=== PATIENT | female | born 1980 | race Caucasian/White ===

== ENCOUNTER 2018-04-28 13:55 | Inpatient (IN) ==
[2018-04-28 14:43] LABS: Bilirubin,Urine Negative (Negative); Blood,Urine Negative (Negative); Color,Urine Yellow (Yellow); Glucose,Urine (UA) Normal (Normal); Ketones,Urine Negative (Negative); Leukocyte Esterase,Urine Small (Negative); Nitrite,Urine Negative (Negative); Protein,Urine 100 mg/dL (Neg-Trace); Specific Gravity,Urine 1.028 (1.010-1.025); Urobilinogen,Urine Normal (Normal)
[2018-04-28 14:52] LABS: Bacteria,Urine Moderate per hpf (None-Few); Hyaline Casts,Urine None Seen per lpf (None-Few); Squamous Epithelial Cell,Urine Many per lpf (None-Few); WBC,Urine 30-50 per hpf (0-3)
[2018-04-28 15:02] LABS: Clarity,Urine Slightly Hazy (Clear)
[2018-04-28] MEDS ORDERED: *HR* FentaNYL (PF) 100 MCG/2 ML VIAL IVP ONE (15:35)
[2018-04-28] MEDS ORDERED: cefTRIAXone 1,000 MG in Water for inj. (sterile) 20 ML 10 ML IVP ONE (15:35)
[2018-04-28] MEDS ORDERED: Ondansetron 4 MG/2 ML VIAL IVP ONE (15:35)
[2018-04-28] MEDS ORDERED: Ketorolac 15 MG/ML VIAL IVP ONE (15:36)
[2018-04-28 15:45] LABS: Basophils % 0.3 %; Hematocrit 37.1 % (35.3-44.9); Hemoglobin 12.5 g/dL (11.5-15.4); Immature Granulocytes % 0.8 % (0-4); Lymphocytes # 0.3 K/mcL (0.6-4.6); Lymphocytes % 5.1 %; Mean Corpuscular HGB Conc 33.7 g/dL (31.6-35.5); Mean Corpuscular Hemoglobin 29.9 pg (28.0-33.3); Mean Corpuscular Volume 88.8 fL (83.0-100.0); Mean Platelet Volume 10.2 fL (9.4-12.4); Monocytes # 0.6 K/mcL (0.0-1.3); Monocytes % 8.8 %; Neutrophils # 5.3 K/mcL (1.6-8.9); Platelet Count 148 K/mcL (140-400); Red Blood Count 4.18 M/mcL (3.82-4.97); Red Cell Distribution Width 13.2 % (11.5-14.5)
[2018-04-28 15:52] LABS: BUN/Creatinine Ratio 18 (6-26); Blood Urea Nitrogen 13 mg/dL (6-20); Carbon Dioxide 24 mEq/L (23-29); Chloride 103 mEq/L (98-107); Glucose 127 mg/dL (70-105); Osmolality,Calculated 284 (280-300); Potassium 4.2 mEq/L (3.5-5.1); Sodium 136 mEq/L (136-145); eGFR For Non-African Americans > 60 (> 60)
[2018-04-28] MEDS: 0.9 % Sodium Chloride 1,000 ML IVC SCH ×3 (15:55→22:34)
--- NOTE | 2018-04-28 15:57 | Emergency Department Note ---
Disposition Clinical Impression: Febrile illness, acute Urinary tract infection Qualifiers: Urinary tract infection type: acute cystitis Hematuria presence: without hematuria Qualified Code(s): N30.00 - Acute cystitis without hematuria Disposition: Still a Patient Referrals: Garcia Abbott DO [Primary Care Provider] - Forms: ED Satisfaction Letter Time of Disposition: 19:05 General Adult HPI - General Chief complaint: ED Urogenital-Female Stated complaint: Body aches,UTI Time Seen by Provider: 04/28/18 14:24 Source: patient Limitations: no limitations Nursing Notes Reviewed: Yes Vital Signs Reviewed: Yes - History of Present Illness HPI Narrative: Patient complaining of myalgias for the past week. Approximately 3 weeks ago she was diagnosed with pyelonephritis. States she took antibiotics and got better however she started having pain again she went back to urgent care and had a KUB which showed no signs of stones. She states she was having hematuria at that time. She then had a couple days where she felt better however over the past week she has gotten worse again. She reports burning on urination. Pain Scale: 10 - Related Data Home Medications Medication Instructions Recorded Confirmed Albuterol Sulfate [Ventolin Hfa] 2 puff IH Q6H PRN 04/28/18 04/28/18 Amitriptyline [Elavil] 25 mg PO HS 04/28/18 04/28/18 Budesonide/Formoterol 160/4.5 2 puff IH BIDR 04/28/18 04/28/18 [Symbicort 160/4.5] Cetirizine HCl [Zyrtec] 10 mg PO DAILY 04/28/18 04/28/18 Fluticasone/Vilanterol [Breo 1 puff IH DAILY 04/28/18 04/28/18 Ellipta 100-25 Mcg INH] Mometasone Furoate 2 spr NS DAILY 04/28/18 04/28/18 Montelukast [Singulair] 10 mg PO DAILY 04/28/18 04/28/18 SUMAtriptan Succinate [Imitrex] 100 mg PO BID PRN 04/28/18 04/28/18 Sertraline [Zoloft] 100 mg PO DAILY 04/28/18 04/28/18 Allergies Allergy/AdvReac Type Severity Reaction Status Date / Time ampicillin Allergy Rash Verified 06/12/15 10:49 All systems ED: reviewed and negative except as stated. Constitutional: Denies: fever, chills ENT ED: Denies: congestion Cardiovascular: Reports: chest pain (rib pain when she takes a deep breath). Denies: palpitations, syncope Respiratory: Denies: cough, dyspnea Gastrointestinal: Reports: abdominal pain (diffuse). Denies: nausea, vomiting, diarrhea, hematemesis, melena, hematochezia Genitourinary: Reports: urgency, dysuria, hematuria (one week ago). Denies: frequency Musculoskeletal: Reports: back pain (low back), myalgia. Denies: neck pain Integumentary: Denies: rash Past Medical History - Past Medical History Attestation: Yes The following information was validated with the patient. Source: patient Medical history: Reports: non-contributory, GERD - Social History Smoking Status: Never smoker Smokeless Tobacco Status: No Alcohol use: Reports: none Physical Exam - General Limitations: no limitations General appearance: alert, in no apparent distress - Head Head exam: atraumatic, normocephalic, normal inspection - Eye Eye exam: Present: normal appearance, PERRL, EOMI - ENT ENT exam: normal exam, normal oropharynx, mucous membranes moist - Neck Neck exam: Present: normal inspection, full ROM, trachea midline - Chest Chest inspection: Present: normal inspection, symmetric chest wall rise - Respiratory Respiratory exam: Present: normal lung sounds bilaterally. Absent: respiratory distress, accessory muscle use - Cardiovascular Cardiovascular exam: Present: regular rate, normal rhythm, normal heart sounds - Abdominal Exam Abdominal exam: Present: soft, tenderness (Pt reports pain all over however she does not grimace to palpation.), other (No rigidity. No swelling.). Absent: distention, guarding, rebound, rigidity, organomegaly, mass - Extremities Exam Extremities exam: Present: normal inspection, full ROM. Absent: tenderness, pedal edema - Back Exam Back exam: Present: normal inspection, full ROM, tenderness (To palpation of her lower back bilaterally.) - Neurological Exam Neurological exam: Present: alert, oriented X3 - Psychiatric Psychiatric exam: Present: normal affect, normal mood - Skin Skin exam: Present: warm, dry, intact, normal color. Absent: rash, cyanosis Course Course Narrative: Female patient presenting to emergency department complaining of not feeling well for the past week. She complains of myalgias. Dates that 3 weeks ago she was diagnosed with pyelonephritis. Was given antibiotics and finish them however she states she got better and then got worse again. She was seen at urgent care and diagnosed with possibly passing a kidney stone. She did have a KUB done that showed no stone however she was having blood in her urine. She states that she got better mildly and then got worse again. She says for the past week she has had pain in her back on the left side more than the right as well as some pain in her abdomen. She cannot state a specific area that his abdomen has been hurting however she reports the whole abdomen. She also reports some pain on deep inspiration. She describes it as a rib pain. She denies any fever however she is febrile and tachycardic here. We will provide patient with 2 L of fluid at this time. We will also get basic labs and a blood culture. We will provide her with Rocephin as she does have a urinary tract infection. We will also get a CT of patient's abdomen. Vital Signs Temperature 101.6 F H 04/28/18 13:57 Pulse Rate 108 04/28/18 13:57 Respiratory Rate 16 04/28/18 13:57 Blood Pressure 142/92 04/28/18 13:57 O2 Sat by Pulse Oximetry 98 04/28/18 13:57 Temperature 98.1 F 04/28/18 18:33 Pulse Rate 90 04/28/18 18:33 Respiratory Rate 18 04/28/18 18:33 Blood Pressure 102/65 04/28/18 18:33 O2 Sat by Pulse Oximetry 95 04/28/18 18:33 Oxygen Delivery Oxygen Delivery Room Air Medical Decision Making - Medical Records Medical records reviewed: Yes I reviewed the patient's medical records. - Lab Data Lab results reviewed: Yes I reviewed the patient's lab results. Result diagrams: 04/28/18 15:12 04/28/18 15:12 Lab Results 04/28/18 04/28/18 04/28/18 Range/Units 14:20 14:20 15:12 WBC 6.3 (4.3-11.1) K/mcL RBC 4.18 (3.82-4.97) M/mcL Hgb 12.5 (11.5-15.4) g/dL Hct 37.1 (35.3-44.9) % MCV 88.8 (83.0-100.0) fL MCH 29.9 (28.0-33.3) pg MCHC 33.7 (31.6-35.5) g/dL RDW 13.2 (11.5-14.5) % Plt Count 148 (140-400) K/mcL MPV 10.2 (9.4-12.4) fL Immature Gran % 0.8 (0-4) % Seg Neutrophils % 85.0 % Lymphocytes % 5.1 % Monocytes % 8.8 % Eosinophils % 0.0 % Basophils % 0.3 % Neutrophils # 5.3 (1.6-8.9) K/mcL Lymphocytes # 0.3 L (0.6-4.6) K/mcL Monocytes # 0.6 (0.0-1.3) K/mcL Eosinophils # 0.0 (0.0-0.6) K/mcL Basophils # 0.0 (0.0-0.2) K/mcL Sodium (136-145) mEq/L Potassium (3.5-5.1) mEq/L Chloride (98-107) mEq/L Carbon Dioxide (23-29) mEq/L BUN (6-20) mg/dL Creatinine (0.60-1.20) mg/dL Est GFR ( Amer) (> 60) Est GFR (Non-Af Amer) (> 60) BUN/Creatinine Ratio (6-26) Glucose (70-105) mg/dL Calculated Osmolality (280-300) Lactic Acid (0.5-2.2) mmol/L Calcium (8.6-10.3) mg/dL Phosphorus (2.7-4.5) mg/dL Magnesium (1.6-2.6) mg/dL Total Bilirubin (0.3-1.0) mg/dL Direct Bilirubin (0.0-0.2) mg/dL Indirect Bilirubin (0.0-1.2) mg/dL AST (13-39) Units/L ALT (7-52) Units/L Alkaline Phosphatase (34-104) Units/L Troponin I (< 0.04) ng/mL Serum Total Protein (6.4-8.9) g/dL Albumin (3.5-5.7) g/dL Globulin (2.4-3.5) g/dL Albumin/Globulin Ratio (1.1-2.2) Urine Color Yellow (Yellow) Urine Clarity Slightly Hazy (Clear) Urine pH 6.0 (5.0-8.0) pH Units Ur Specific [place] 1.028 H (1.010-1.025) Urine Protein 100 H (Neg-Trace) mg/dL Urine Glucose (UA) Normal (Normal) mg/dL Urine Ketones Negative (Negative) mg/dL Urine Blood Negative (Negative) Urine Nitrite Negative (Negative) Urine Bilirubin Negative (Negative) Urine Urobilinogen Normal (Normal) mg/dL Ur Leukocyte Esterase Small H (Negative) Urine Microscopic RBC 3-5 H (0-3) per hpf Urine Microscopic WBC 30-50 H (0-3) per hpf Ur Squamous Epith Cells Many H (None-Few) per lpf Urine Bacteria Moderate H (None-Few) per hpf Hyaline Casts None Seen (None-Few) per lpf Ur Culture Indicated? NO. A (NO) Urine Test Negative (Negative) 04/28/18 04/28/18 Range/Units 15:12 15:39 WBC (4.3-11.1) K/mcL RBC (3.82-4.97) M/mcL Hgb (11.5-15.4) g/dL Hct (35.3-44.9) % MCV (83.0-100.0) fL MCH (28.0-33.3) pg MCHC (31.6-35.5) g/dL RDW (11.5-14.5) % Plt Count (140-400) K/mcL MPV (9.4-12.4) fL Immature Gran % (0-4) % Seg Neutrophils % % Lymphocytes % % Monocytes % % Eosinophils % % Basophils % % Neutrophils # (1.6-8.9) K/mcL Lymphocytes # (0.6-4.6) K/mcL Monocytes # (0.0-1.3) K/mcL Eosinophils # (0.0-0.6) K/mcL Basophils # (0.0-0.2) K/mcL Sodium 136 (136-145) mEq/L Potassium 4.2 (3.5-5.1) mEq/L Chloride 103 (98-107) mEq/L Carbon Dioxide 24 (23-29) mEq/L BUN 13 (6-20) mg/dL Creatinine 0.74 (0.60-1.20) mg/dL Est GFR ( Amer) > 60 (> 60) Est GFR (Non-Af Amer) > 60 (> 60) BUN/Creatinine Ratio 18 (6-26) Glucose 127 H (70-105) mg/dL Calculated Osmolality 284 (280-300) Lactic Acid 1.2 (0.5-2.2) mmol/L Calcium 9.0 (8.6-10.3) mg/dL Phosphorus 2.0 L (2.7-4.5) mg/dL Magnesium 1.9 (1.6-2.6) mg/dL Total Bilirubin 0.4 (0.3-1.0) mg/dL Direct Bilirubin 0.1 (0.0-0.2) mg/dL Indirect Bilirubin 0.3 (0.0-1.2) mg/dL AST 31 (13-39) Units/L ALT 44 (7-52) Units/L Alkaline Phosphatase 63 (34-104) Units/L Troponin I < 0.03 (< 0.04) ng/mL Serum Total Protein 7.4 (6.4-8.9) g/dL Albumin 4.4 (3.5-5.7) g/dL Globulin 3.0 (2.4-3.5) g/dL Albumin/Globulin Ratio 1.5 (1.1-2.2) Urine Color (Yellow) Urine Clarity (Clear) Urine pH (5.0-8.0) pH Units Ur Specific [place] (1.010-1.025) Urine Protein (Neg-Trace) mg/dL Urine Glucose (UA) (Normal) mg/dL Urine Ketones (Negative) mg/dL Urine Blood (Negative) Urine Nitrite (Negative) Urine Bilirubin (Negative) Urine Urobilinogen (Normal) mg/dL Ur Leukocyte Esterase (Negative) Urine Microscopic RBC (0-3) per hpf Urine Microscopic WBC (0-3) per hpf Ur Squamous Epith Cells (None-Few) per lpf Urine Bacteria (None-Few) per hpf Hyaline Casts (None-Few) per lpf Ur Culture Indicated? (NO) Urine Test (Negative) - Radiology Data Radiology results reviewed: Yes I reviewed the patient's radiology results. Abdomen/Pelvis CT 04/28/18 14:39 IMPRESSION: No evidence for acute intra-abdominal or intrapelvic pathology. No bowel obstruction or inflammation. No evidence for nephrolithiasis or urinary obstruction. Normal appendix. 4.4 cm left adnexal cyst. Follow-up as described below. Managing Incidental Adnexal Cystic Mass by CT or MR Benign cyst: Premenopausal (< or equal to 50 years if LMP unknown) < or equal to 5 cm: no follow up >5 cm: US in 6-12 weeks > or equal to 10 cm: US promptly Early postmenopausal (0-5 years after LMP) < or equal to 3 cm: no follow up 3-5 cm: US in 6-12 weeks >5 cm: US promptly Late postmenopausal < or equal to 3 cm: no follow up >3 cm: US promptly Reference: Pearl et al. Managing Incidental Findings on Abdominal CT: White Paper of the ACR Incidental Findings Committee. J Am Elda Radiol 2010;7:[id number] D/ / Rolando Miranda MD / Rolando Miranda MD Interpreting Provider: Rolando Miranda MD Chest X-Ray 04/28/18 15:33 IMPRESSION: No acute process. D/ / Mary Martin MD / Mary Martin MD Interpreting Provider: Mary Martin MD
[2018-04-28 16:08] LABS: Alanine Aminotransferase 44 Units/L (7-52); Albumin 4.4 g/dL (3.5-5.7); Albumin/Globulin Ratio 1.5 (1.1-2.2); Alkaline Phosphatase 63 Units/L (34-104); Aspartate Amino Transferase 31 Units/L (13-39); Bilirubin,Direct 0.1 mg/dL (0.0-0.2); Bilirubin,Indirect 0.3 mg/dL (0.0-1.2); Bilirubin,Total 0.4 mg/dL (0.3-1.0); Magnesium 1.9 mg/dL (1.6-2.6); Total Protein 7.4 g/dL (6.4-8.9)
--- NOTE | 2018-04-28 16:09 | Emergency Department Note ---
Disposition Clinical Impression: Febrile illness, acute Urinary tract infection Qualifiers: Urinary tract infection type: acute cystitis Disposition: Still a Patient Referrals: Garcia Abbott DO [Primary Care Provider] - Forms: ED Satisfaction Letter General Adult HPI - General Chief complaint: ED Urogenital-Female Stated complaint: Body aches,UTI Time Seen by Provider: 04/28/18 14:24 Source: patient Limitations: no limitations - History of Present Illness Pain Scale: 10 - Related Data Home Medications Medication Instructions Recorded Confirmed Prilosec 06/12/15 06/12/15 Previous Rx's Medication Instructions Recorded Cefdinir [Omnicef] 300 mg PO BID #20 capsule 06/12/15 Fluticasone Propionate Nasal 2 spray NS DAILY PRN #1 bottle 06/12/15 [Flonase] GuaiFENesin ER [Mucinex] 600 - 1,200 mg PO BID PRN #40 tab 06/12/15 Ibuprofen [Motrin] 800 mg PO Q6-8H PRN #30 tablet 06/12/15 Ondansetron [Zofran] 8 mg PO Q8HR PRN #9 tablet 06/12/15 Promethazine/Dextromethorphan 5 ml PO Q4H PRN #120 ml 06/12/15 [Promethazine-Dm Syrup] Allergies Allergy/AdvReac Type Severity Reaction Status Date / Time ampicillin Allergy Rash Verified 06/12/15 10:49 Past Medical History - Past Medical History Medical history: Reports: non-contributory, GERD - Social History Smoking Status: Never smoker Smokeless Tobacco Status: No Alcohol use: Reports: none Physical Exam - General Limitations: no limitations General appearance: alert, in no apparent distress Course Vital Signs Temperature 101.6 F H 04/28/18 13:57 Pulse Rate 108 04/28/18 13:57 Respiratory Rate 16 04/28/18 13:57 Blood Pressure 142/92 04/28/18 13:57 O2 Sat by Pulse Oximetry 98 04/28/18 13:57 Temperature 101.2 F H 04/28/18 15:30 Pulse Rate 103 04/28/18 15:30 Respiratory Rate 14 04/28/18 15:30 Blood Pressure 137/82 04/28/18 15:30 O2 Sat by Pulse Oximetry 95 04/28/18 15:30 Oxygen Delivery Oxygen Delivery Room Air Medical Decision Making - Lab Data Result diagrams: 04/28/18 15:12 04/28/18 15:12 Lab Results 04/28/18 04/28/18 04/28/18 Range/Units 14:20 15:12 15:12 WBC 6.3 (4.3-11.1) K/mcL RBC 4.18 (3.82-4.97) M/mcL Hgb 12.5 (11.5-15.4) g/dL Hct 37.1 (35.3-44.9) % MCV 88.8 (83.0-100.0) fL MCH 29.9 (28.0-33.3) pg MCHC 33.7 (31.6-35.5) g/dL RDW 13.2 (11.5-14.5) % Plt Count 148 (140-400) K/mcL MPV 10.2 (9.4-12.4) fL Immature Gran % 0.8 (0-4) % Seg Neutrophils % 85.0 % Lymphocytes % 5.1 % Monocytes % 8.8 % Eosinophils % 0.0 % Basophils % 0.3 % Neutrophils # 5.3 (1.6-8.9) K/mcL Lymphocytes # 0.3 L (0.6-4.6) K/mcL Monocytes # 0.6 (0.0-1.3) K/mcL Eosinophils # 0.0 (0.0-0.6) K/mcL Basophils # 0.0 (0.0-0.2) K/mcL Sodium 136 (136-145) mEq/L Potassium 4.2 (3.5-5.1) mEq/L Chloride 103 (98-107) mEq/L Carbon Dioxide 24 (23-29) mEq/L BUN 13 (6-20) mg/dL Creatinine 0.74 (0.60-1.20) mg/dL Est GFR ( Amer) > 60 (> 60) Est GFR (Non-Af Amer) > 60 (> 60) BUN/Creatinine Ratio 18 (6-26) Glucose 127 H (70-105) mg/dL Calculated Osmolality 284 (280-300) Lactic Acid (0.5-2.2) mmol/L Calcium 9.0 (8.6-10.3) mg/dL Urine Color Yellow (Yellow) Urine Clarity Slightly Hazy (Clear) Urine pH 6.0 (5.0-8.0) pH Units Ur Specific [place] 1.028 H (1.010-1.025) Urine Protein 100 H (Neg-Trace) mg/dL Urine Glucose (UA) Normal (Normal) mg/dL Urine Ketones Negative (Negative) mg/dL Urine Blood Negative (Negative) Urine Nitrite Negative (Negative) Urine Bilirubin Negative (Negative) Urine Urobilinogen Normal (Normal) mg/dL Ur Leukocyte Esterase Small H (Negative) Urine Microscopic RBC 3-5 H (0-3) per hpf Urine Microscopic WBC 30-50 H (0-3) per hpf Ur Squamous Epith Cells Many H (None-Few) per lpf Urine Bacteria Moderate H (None-Few) per hpf Hyaline Casts None Seen (None-Few) per lpf Ur Culture Indicated? NO. A (NO) 04/28/18 Range/Units 15:39 WBC (4.3-11.1) K/mcL RBC (3.82-4.97) M/mcL Hgb (11.5-15.4) g/dL Hct (35.3-44.9) % MCV (83.0-100.0) fL MCH (28.0-33.3) pg MCHC (31.6-35.5) g/dL RDW (11.5-14.5) % Plt Count (140-400) K/mcL MPV (9.4-12.4) fL Immature Gran % (0-4) % Seg Neutrophils % % Lymphocytes % % Monocytes % % Eosinophils % % Basophils % % Neutrophils # (1.6-8.9) K/mcL Lymphocytes # (0.6-4.6) K/mcL Monocytes # (0.0-1.3) K/mcL Eosinophils # (0.0-0.6) K/mcL Basophils # (0.0-0.2) K/mcL Sodium (136-145) mEq/L Potassium (3.5-5.1) mEq/L Chloride (98-107) mEq/L Carbon Dioxide (23-29) mEq/L BUN (6-20) mg/dL Creatinine (0.60-1.20) mg/dL Est GFR ( Amer) (> 60) Est GFR (Non-Af Amer) (> 60) BUN/Creatinine Ratio (6-26) Glucose (70-105) mg/dL Calculated Osmolality (280-300) Lactic Acid 1.2 (0.5-2.2) mmol/L Calcium (8.6-10.3) mg/dL Urine Color (Yellow) Urine Clarity (Clear) Urine pH (5.0-8.0) pH Units Ur Specific [place] (1.010-1.025) Urine Protein (Neg-Trace) mg/dL Urine Glucose (UA) (Normal) mg/dL Urine Ketones (Negative) mg/dL Urine Blood (Negative) Urine Nitrite (Negative) Urine Bilirubin (Negative) Urine Urobilinogen (Normal) mg/dL Ur Leukocyte Esterase (Negative) Urine Microscopic RBC (0-3) per hpf Urine Microscopic WBC (0-3) per hpf Ur Squamous Epith Cells (None-Few) per lpf Urine Bacteria (None-Few) per hpf Hyaline Casts (None-Few) per lpf Ur Culture Indicated? (NO) Critical Care Time Critical Care Time: Yes Total Critical Care Time: 35 Attestation: CC time spent in med management of possible urosepsis, febrile illness. Attestation Statement - Attestation Attestation: I examined this patient and my medical decision-making was reviewed with the Resident Physician. I agree with the documented findings, disposition and treatment plan as described except to the extent set forth below. 37 showed female presents emergency room for generalized body aches, fever, urinary complaints. She was recently diagnosed with a UTI a few weeks ago. She states she took antibiotics and has been off them for the past couple weeks. She has noted increasing urinary frequency and dysuria now associated with generalized malaise, fevers, myalgias. Concerns for possible urosepsis. She does have a fever and she is tachycardic. Blood pressure is normal. He has no white count. Lactate is negative. We have ordered IV fluids, pain medications and I ordered a CT scan of her abdomen and pelvis to rule out any infected stone. Anticipate the patient will likely be admitted based on her vitals and fever. Heart rate can be explained from her fever. Disposition is pending at this time based on lab work as well as a pending CT scan. We have ordered IV Rocephin as well as blood cultures and a urine culture. Critical care time of 35 minutes spent in medical management of potential sepsis.
[2018-04-28 16:10] LABS: Troponin I < 0.03 ng/mL (< 0.04)
[2018-04-28] MEDS ORDERED: *HR* Nalbuphine 10 MG/ML AMPUL IV ONE (17:20)
[2018-04-28] MEDS ORDERED: 0.9 % Sodium Chloride 1,000 ML IVC ONE (17:51)
--- NOTE | 2018-04-28 19:48 | Internal Med History&Physical ---
Date of Encounter: 04/28/18 Time of Encounter: 19:46 Internal Medicine - H&P: HPI Chief complaint: pain while urinating Admitted From: Home Plans for Post Hospital Care: Home History of present illness: Ms. Del Castillo is a 37 year old obese female with history of asthma and depression presented to the ED with complaint of dysuria. As per patient has had symptoms on and off for the past 3 weeks and has visited urgent care multiple times and was prescribed antibiotics which she cannot recall the name of without improvement in her symptoms. She cannot recall how many days she took antibiotics for but does report that she completed the antibiotics. She reports burning pain while urinating in addition to having blood in her urine. She denies any sexually transmitted diseases, she has had no history of kidney stones but she does report on-and-off fever and chills for the past 3 weeks. Today she again felt feverish and had dysuria so she decided to come to the ED. While in the ED UA was found to be positive so she was started on antibiotics. CT abdomen and pelvis did not show any hydronephrosis or evidence of pyelonephritis. She cannot recall any aggravating or alleviating factors. She denies . currently she denies fever, hadache, vision changes, chills, N/v/D, cp, SOB, heat or cold intolerance. Past Med Surg Social Fam HX - Past Medical History Medical history: non-contributory, GERD - Social History Smoking Status: Never smoker Smokeless Tobacco Status: No Alcohol use: none Internal Medicine - H&P: Meds Albuterol Sulfate [Ventolin Hfa] 2 puff IH Q6H PRN 04/28/18 [History] Amitriptyline [Elavil] 25 mg PO HS 04/28/18 [History] Budesonide/Formoterol 160/4.5 [Symbicort 160/4.5] 2 puff IH BIDR 04/28/18 [ History] Cetirizine HCl [Zyrtec] 10 mg PO DAILY 04/28/18 [History] Fluticasone/Vilanterol [Breo Ellipta 100-25 Mcg INH] 1 puff IH DAILY 04/28/18 [ History] Montelukast [Singulair] 10 mg PO DAILY 04/28/18 [History] RX: Mometasone Furoate 2 spr NS DAILY 04/28/18 [History] SUMAtriptan Succinate [Imitrex] 100 mg PO BID PRN 04/28/18 [History] Sertraline [Zoloft] 100 mg PO DAILY 04/28/18 [History] 3 Allergy/AdvReac Type Severity Reaction Status Date / Time ampicillin Allergy Rash Verified 06/12/15 10:49 All Systems PM: A 10-system review of systems was performed and is negative for pertinent findings except as documented above in the HPI. - Constitutional Vitals: Temp Pulse Resp BP Pulse Ox 98.1 F 90 18 102/65 95 04/28/18 18:33 04/28/18 18:33 04/28/18 18:33 04/28/18 18:33 04/28/18 18:33 - Other Additional findings: General: Patient is alert, oriented, no acute distress, morbidly obese Head: atraumatic, normocephalic, Eye: normal appearance, PERRL, no scleral icterus, no conjunctival injection ENT: mucous membranes moist, normal external ear exam Neck: normal inspection, trachea midline, full ROM, no carotid bruits Chest: normal inspection, symmetric chest rise Respiratory: Good respiratory effort. Bilateral breath sounds are clear without wheezing, crackles, or rhonchi. Cardiovascular: Regular rate and rhythm. No clicks, rubs, gallops, or murmors. Normal heart sounds. Abdomen: Bowel sounds present normoactive x-4 quadrants. Abdomen is soft, nondistended. Epigastric tenderness. No guarding or rebound. No organomegaly noted, obese, no CVA tenderness Musculoskeletal: Spontaneously moving all extremities Skin: warm, dry, intact. Neuro: Alert and oriented x4. Sensation light touch intact. Cranial nerves II- 12 is intact. Not aphasic, gait is steady, rapid hand movements intact, finger- to-nose intact, Psych: Patient's affect is normal Internal Med - H&P Results - Labs CBC & Chem 7: 04/28/18 15:12 04/28/18 15:12 - Assessment and plan (1) Complicated UTI (urinary tract infection) Current Visit: Yes Status: Acute Assessment and plan: UA positive has had out patient treatment ( does not know name of ABx) follow urine cx and blood cx will continue ceftriaxone IVPB - already received in the ED- no allergic rxn noted will send chlamydia/gonorrhea/HIV CT A/P was negative for pyelonephritis tylenol for pain and fever Q6H PRN will start her on IVF at 125 cc per hour watch for over load (2) Morbidly obese Current Visit: Yes Status: Acute Assessment and plan: was counseled on diet nutrition consult in the AM (3) Asthma Current Visit: Yes Status: Acute Assessment and plan: continue symbicort, montelukast and Albuterol PRN Qualifiers: Asthma severity: moderate Asthma persistence: persistent Asthma complication type: uncomplicated Qualified Code(s): J45.40 - Moderate persistent asthma, uncomplicated (4) Depression Current Visit: Yes Status: Acute Assessment and plan: continue home mediations once confirmed Qualifiers: Depression Type: unspecified Qualified Code(s): F32.9 - Major depressive disorder, single episode, unspecified (5) DVT prophylaxis Current Visit: Yes Status: Acute Assessment and plan: heparin 5000 units SC Q8H - Time Spent With Patient Total time spent is greater than 50% in coordination of care (as documented) at patient's floor/unit and/or counseling patient:
[2018-04-28] MEDS ORDERED: Acetaminophen 325 MG TABLET PO PRN (20:04)
[2018-04-28] MEDS: Budesonide/Formoterol 160/4.5 MDI IH SCH (20:41)
[2018-04-28] MEDS: cefTRIAXone 2,000 MG in Water for inj. (sterile) 20 ML 20 ML IVP SCH (21:30)
[2018-04-28] MEDS: *HR* Heparin 5,000 UNIT/ML VIAL SQ SCH (21:30)
[2018-04-28] MEDS ORDERED: Acetaminophen 325 MG TABLET PO ONE (23:57)
[2018-04-28] MEDS ORDERED: Ringers Solution, Lactated 500 ML IVC ONE (23:57)
[2018-04-29 01:46] LABS: Chlamydia Trachomatis DNA Ur NOT DETECTED (Not Detect)
[2018-04-29 05:07] LABS: Basophils % 0.4 %; Immature Granulocytes % 0.7 % (0-4); Lymphocytes # 0.4 K/mcL (0.6-4.6); Lymphocytes % 9.3 %; Mean Corpuscular HGB Conc 32.8 g/dL (31.6-35.5); Mean Corpuscular Hemoglobin 29.4 pg (28.0-33.3); Mean Corpuscular Volume 89.6 fL (83.0-100.0); Mean Platelet Volume 10.6 fL (9.4-12.4); Monocytes # 0.2 K/mcL (0.0-1.3); Monocytes % 4.7 %; Neutrophils # 3.8 K/mcL (1.6-8.9); Platelet Count 114 K/mcL (140-400); Red Blood Count 3.57 M/mcL (3.82-4.97); Red Cell Distribution Width 13.2 % (11.5-14.5); Segmented Neutrophils % 84.9 %
[2018-04-29 05:08] LABS: Hemoglobin 10.5 g/dL (11.5-15.4)
[2018-04-29 05:21] LABS: BUN/Creatinine Ratio 16 (6-26); Blood Urea Nitrogen 11 mg/dL (6-20); Carbon Dioxide 21 mEq/L (23-29); Chloride 110 mEq/L (98-107); Glucose 110 mg/dL (70-105); Osmolality,Calculated 286 (280-300); Potassium 3.9 mEq/L (3.5-5.1); Sodium 138 mEq/L (136-145); eGFR For Non-African Americans > 60 (> 60)
[2018-04-29] MEDS: *HR* Heparin 5,000 UNIT/ML VIAL SQ SCH ×3 (05:21→21:11)
[2018-04-29] MEDS: 0.9 % Sodium Chloride 1,000 ML IVC SCH ×2 (07:43→17:20)
[2018-04-29] MEDS: Budesonide/Formoterol 160/4.5 MDI IH SCH ×2 (08:01→20:16)
[2018-04-29] MEDS: Acetaminophen 325 MG TABLET PO PRN ×2 (08:14→17:20)
--- NOTE | 2018-04-29 08:24 | Internal Med Progress Note ---
Date of Encounter: 04/29/18 Time of Encounter: 08:20 - Assessment and plan (1) Complicated UTI (urinary tract infection) Current Visit: Yes Status: Acute Assessment and plan: UA positive has had out patient treatment ( does not know name of ABx) follow urine cx and blood cx will continue ceftriaxone IVPB - already received in the ED- no allergic rxn noted will send chlamydia/gonorrhea/HIV CT A/P was negative for pyelonephritis tylenol for pain and fever Q6H PRN will start her on IVF at 125 cc per hour watch for over load 04/29- continues to have weakness, fatigue and dysuria. Complicated UTI with outpatient treatment failure. Continue Rocephin at this time broadening coverage with vancomycin and pharmacy dosing as the patient is also septic. urine cultures received but pending-adjust antibiotics based on culture results. Blood cultures pending. Patient was febrile overnight with a TMAX of 102.7. Afebrile this morning. Continue IV fluid. Chlamydia/gonorrhea/HIV nonreactive. (2) Sepsis Current Visit: Yes Status: Acute Assessment and plan: Sepsis 2/2 urinary tract infection. Blood pressure borderline low, tachycardic and fevered. Source: UTI organism unknown at this time, follow cultures. See assessment and planning above Qualifiers: Sepsis type: sepsis due to unspecified organism Qualified Code(s): A41.9 - Sepsis, unspecified organism (3) Morbidly obese Current Visit: Yes Status: Acute Assessment and plan: Patient is morbidly obese, discussed lifestyle modification and counseled on diet. Continue nutrition consult (4) Asthma Current Visit: Yes Status: Acute Assessment and plan: not in acute exacerbation. continue symbicort, montelukast and Albuterol PRN Qualifiers: Asthma severity: moderate Asthma persistence: persistent Asthma complication type: uncomplicated Qualified Code(s): J45.40 - Moderate persistent asthma, uncomplicated (5) Depression Current Visit: Yes Status: Acute Assessment and plan: History of depression, continue antidepressants Qualifiers: Depression Type: unspecified Qualified Code(s): F32.9 - Major depressive disorder, single episode, unspecified (6) DVT prophylaxis Current Visit: Yes Status: Acute Assessment and plan: Continue subcutaneous heparin 3 times a day - Time Spent With Patient Total time spent is greater than 50% in coordination of care (as documented) at patient's floor/unit and/or counseling patient: 25 - 35 minutes - Subjective Interval history: The patient was seen and examined at bedside today. Continued to have fevers overnight. Also, continued to report dysuria, weakness, fatigue, malaise, rigors - Constitutional Vitals: Temp Pulse Resp BP Pulse Ox 98.6 F 90 16 94/61 96 04/29/18 07:56 04/29/18 07:56 04/29/18 08:02 04/29/18 07:56 04/29/18 08:02 General appearance: Present: mild distress, A&O X 3, morbidly obese - Head Head exam: Present: atraumatic, normocephalic - Eye Eye exam: Present: EOMI, PERRL, conjuntiva pink, sclera anicteric Pupils: Present: PERRL - Neck Neck exam general surgery: Present: supple, trachea midline. Absent: lymphadenopathy - Respiratory Respiratory exam: Present: CTAB. Absent: accessory muscle use, rales, rhonchi, wheezes - Cardiovascular Cardiovascular exam: Present: RRR, +S1, +S2. Absent: diastolic murmur, gallop, rubs, systolic murmur - GI/Abdominal GI/Abdominal exam: Present: normal bowel sounds, soft, no peritoneal signs. Absent: distended, tenderness - Extremities Exam Extremities exam: Present: warm, radial pulses palpable and symmetrical. Absent : calf tenderness, cyanotic, pedal edema - Back Exam Back exam: Absent: CVA tenderness (L), CVA tenderness (R), tenderness - Neurological Exam Neurological exam: Present: CN II-XII intact, oriented X3, no focal deficits. Absent: pronater drift, facial droop, speech deficit - Skin Skin exam: Present: dry, intact Internal Medicine: Result - Labs CBC & Chem 7: 04/29/18 03:46 04/29/18 03:46 Labs: Short CBC 04/29/18 Range/Units 03:46 WBC 4.5 (4.3-11.1) K/mcL Hgb 10.5 L D (11.5-15.4) g/dL Hct 32.0 L (35.3-44.9) % Plt Count 114 L (140-400) K/mcL Neutrophils # 3.8 (1.6-8.9) K/mcL BMP 07/26/18 03:46 Sodium 138 Potassium 3.9 Chloride 110 H Carbon Dioxide 21 L BUN 11 Creatinine 0.67 Glucose 110 H Calcium 8.0 L Consult Discharge Plan - Plan Referrals: Garcia Abbott DO [Primary Care Provider] -
[2018-04-29] MEDS ORDERED: Naloxone 0.4 MG/ML INJ IVP PRN (08:42)
[2018-04-29] MEDS ORDERED: 0.9 % Sodium Chloride 500 ML IVC ONE ×2 (11:39→18:11)
[2018-04-29] MEDS ORDERED: Ketorolac 30 MG/ML VIAL IVP ONE (13:19)
[2018-04-29] MEDS: Ondansetron 4 MG/2 ML VIAL IVP PRN (13:55)
--- NOTE | 2018-04-29 17:09 | Electrocardiograph Report ---
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
[2018-04-29] MEDS: cefTRIAXone 2,000 MG in Water for inj. (sterile) 20 ML 20 ML IVP SCH (21:13)
[2018-04-30] MEDS: 0.9 % Sodium Chloride 1,000 ML IVC SCH ×3 (02:50→20:05)
[2018-04-30] MEDS: Acetaminophen 325 MG TABLET PO PRN ×2 (04:11→13:20)
[2018-04-30 05:17] LABS: Basophils % 0.6 %; Eosinophils % 0.6 %; Hematocrit 32.8 % (35.3-44.9); Hemoglobin 10.8 g/dL (11.5-15.4); Immature Granulocytes % 0.3 % (0-4); Lymphocytes # 0.7 K/mcL (0.6-4.6); Lymphocytes % 18.5 %; Mean Corpuscular HGB Conc 32.9 g/dL (31.6-35.5); Mean Corpuscular Hemoglobin 30.3 pg (28.0-33.3); Mean Corpuscular Volume 91.9 fL (83.0-100.0); Mean Platelet Volume 10.8 fL (9.4-12.4); Monocytes # 0.4 K/mcL (0.0-1.3); Neutrophils # 2.5 K/mcL (1.6-8.9); Platelet Count 112 K/mcL (140-400); Red Blood Count 3.57 M/mcL (3.82-4.97); Red Cell Distribution Width 13.2 % (11.5-14.5)
[2018-04-30 05:37] LABS: BUN/Creatinine Ratio 11 (6-26); Blood Urea Nitrogen 7 mg/dL (6-20); Calcium 8.6 mg/dL (8.6-10.3); Carbon Dioxide 24 mEq/L (23-29); Chloride 109 mEq/L (98-107); Glucose 129 mg/dL (70-105); Osmolality,Calculated 288 (280-300); Potassium 4.1 mEq/L (3.5-5.1); Sodium 139 mEq/L (136-145); eGFR For Non-African Americans > 60 (> 60)
[2018-04-30 05:42] LABS: Platelet Estimate Decreased (Normal)
[2018-04-30] MEDS: *HR* Heparin 5,000 UNIT/ML VIAL SQ SCH ×2 (05:55→13:20)
[2018-04-30] MEDS: Budesonide/Formoterol 160/4.5 MDI IH SCH ×2 (07:17→22:18)
[2018-04-30] MEDS: Ondansetron 4 MG/2 ML VIAL IVP PRN (13:23)
[2018-04-30] MEDS ORDERED: Aminoglycoside Consult 1 EACH MC ONE (16:06)
--- NOTE | 2018-04-30 16:55 | Internal Med Progress Note ---
Date of Encounter: 04/30/18 Time of Encounter: 16:52 - Assessment and plan (1) Complicated UTI (urinary tract infection) Current Visit: Yes Status: Acute Assessment and plan: UA positive has had out patient treatment ( does not know name of ABx) follow urine cx and blood cx will continue ceftriaxone IVPB - already received in the ED- no allergic rxn noted will send chlamydia/gonorrhea/HIV CT A/P was negative for pyelonephritis tylenol for pain and fever Q6H PRN will start her on IVF at 125 cc per hour watch for over load 04/29- continues to have weakness, fatigue and dysuria. Complicated UTI with outpatient treatment failure. Continue Rocephin at this time broadening coverage with vancomycin and pharmacy dosing as the patient is also septic. urine cultures received but pending-adjust antibiotics based on culture results. Blood cultures pending. Patient was febrile overnight with a TMAX of 102.7. Afebrile this morning. Continue IV fluid. Chlamydia/gonorrhea/HIV nonreactive. 04/30- urine cultures preliminary-no growth. blood cultures no growth to date. d/c vancomycin. Continue ceftriaxone. Daily labs. Discontinue IV fluid. (2) Sepsis Current Visit: Yes Status: Acute Assessment and plan: Sepsis 2/2 urinary tract infection. Blood pressure borderline low, tachycardic and fevered. Source: UTI organism unknown at this time, follow cultures. See assessment and planning above 04/30- sepsis resolved. afebrile x24 hours, no longer tachycardic. No obvious source for infection, urine microbiology no growth to date, however, given UA and the fact that urine cultures were collected after receiving multiple doses of ABX still consider urine as cause of infection; no obvious wounds. CT abdomen and pelvis negative for acute process. Patient does have pancytopenia today, etiology unclear. Send peripheral blood smear, B12, folate, retic count and follow. Continue daily labs. Qualifiers: Sepsis type: sepsis due to unspecified organism Qualified Code(s): A41.9 - Sepsis, unspecified organism (3) Morbidly obese Current Visit: Yes Status: Acute Assessment and plan: Patient is morbidly obese, discussed lifestyle modification and counseled on diet. Continue nutrition consult (4) Asthma Current Visit: Yes Status: Acute Assessment and plan: not in acute exacerbation. continue symbicort, montelukast and Albuterol PRN Qualifiers: Asthma severity: moderate Asthma persistence: persistent Asthma complication type: uncomplicated Qualified Code(s): J45.40 - Moderate persistent asthma, uncomplicated (5) Depression Current Visit: Yes Status: Acute Assessment and plan: History of depression, continue antidepressants Qualifiers: Depression Type: unspecified Qualified Code(s): F32.9 - Major depressive disorder, single episode, unspecified (6) Pancytopenia Current Visit: Yes Status: Acute Assessment and plan: mild pancytopenia, etiology unclear. Send peripheral blood smear, B12, folate , retic count and follow (7) DVT prophylaxis Current Visit: Yes Status: Acute Assessment and plan: SCD's - Time Spent With Patient Total time spent is greater than 50% in coordination of care (as documented) at patient's floor/unit and/or counseling patient: 25 - 35 minutes - Subjective Interval history: The patient was seen and examined at bedside today. Reporting that she is feeling much better today. Denies any fevers, chills, weakness or fatigue. Denying any urinary symptoms - Constitutional Vitals: Temp Pulse Resp BP Pulse Ox 98.0 F 79 16 115/69 95 04/30/18 15:07 04/30/18 15:07 04/30/18 15:07 04/30/18 15:07 04/30/18 15:07 General appearance: Present: mild distress, A&O X 3, morbidly obese - Head Head exam: Present: atraumatic, normocephalic - Eye Eye exam: Present: PERRL, conjuntiva pink, sclera anicteric Pupils: Present: PERRL - Neck Neck exam general surgery: Present: supple, trachea midline. Absent: lymphadenopathy - Respiratory Respiratory exam: Present: CTAB. Absent: accessory muscle use, rales, rhonchi, wheezes - Cardiovascular Cardiovascular exam: Present: RRR, +S1, +S2. Absent: diastolic murmur, gallop, rubs, systolic murmur - GI/Abdominal GI/Abdominal exam: Present: normal bowel sounds, soft, no peritoneal signs. Absent: distended, tenderness - Extremities Exam Extremities exam: Present: warm, radial pulses palpable and symmetrical. Absent : calf tenderness, cyanotic, pedal edema - Neurological Exam Neurological exam: Present: CN II-XII intact, oriented X3, no focal deficits. Absent: pronater drift, facial droop, speech deficit - Skin Skin exam: Present: dry, intact Internal Medicine: Result - Labs CBC & Chem 7: 04/30/18 04:05 04/30/18 04:05 Labs: Short CBC 04/30/18 Range/Units 04:05 WBC 3.6 L (4.3-11.1) K/mcL Hgb 10.8 L (11.5-15.4) g/dL Hct 32.8 L (35.3-44.9) % Plt Count 112 L (140-400) K/mcL Neutrophils # 2.5 (1.6-8.9) K/mcL BMP 04/30/18 04:05 Sodium 139 Potassium 4.1 Chloride 109 H Carbon Dioxide 24 BUN 7 Creatinine 0.63 Glucose 129 H Calcium 8.6 Consult Discharge Plan - Plan Referrals: Garcia Abbott DO [Primary Care Provider] - (Our offices will call you with an appointment time and date)
[2018-04-30 17:36] LABS: Immature Reticulocyte % 15.7 % (11.0-38.0); Retculocyte # 0.05 M/mcL (0.05-0.10); Reticulocyte % 1.4 % (1.6-2.8)
[2018-04-30 17:48] LABS: INR 1.2; Prothrombin Time 13.2 Seconds (9.4-12.1)
[2018-04-30 18:18] LABS: Folate 17.3 ng/mL (3.0-16.0)
[2018-05-01 04:42] LABS: Basophils % 0.6 %; Eosinophils # 0.1 K/mcL (0.0-0.6); Eosinophils % 1.5 %; Hematocrit 31.6 % (35.3-44.9); Hemoglobin 10.3 g/dL (11.5-15.4); Immature Granulocytes % 0.3 % (0-4); Lymphocytes # 1.1 K/mcL (0.6-4.6); Lymphocytes % 32.2 %; Mean Corpuscular HGB Conc 32.6 g/dL (31.6-35.5); Mean Corpuscular Hemoglobin 29.4 pg (28.0-33.3); Mean Corpuscular Volume 90.3 fL (83.0-100.0); Mean Platelet Volume 11.2 fL (9.4-12.4); Monocytes # 0.5 K/mcL (0.0-1.3); Monocytes % 14.3 %; Neutrophils # 1.7 K/mcL (1.6-8.9); Platelet Count 131 K/mcL (140-400); Red Cell Distribution Width 13.2 % (11.5-14.5); Segmented Neutrophils % 51.1 %
[2018-05-01 04:45] LABS: BUN/Creatinine Ratio 11 (6-26); Blood Urea Nitrogen 7 mg/dL (6-20); Carbon Dioxide 28 mEq/L (23-29); Chloride 104 mEq/L (98-107); Glucose 178 mg/dL (70-105); Osmolality,Calculated 292 (280-300); Potassium 3.7 mEq/L (3.5-5.1); Sodium 140 mEq/L (136-145); eGFR For Non-African Americans > 60 (> 60)
[2018-05-01] MEDS: Acetaminophen 325 MG TABLET PO PRN (06:01)
[2018-05-01] MEDS ORDERED: Acetaminophen 325 MG TABLET PO PRN (06:08)
[2018-05-01] MEDS: Budesonide/Formoterol 160/4.5 MDI IH SCH (07:55)
[2018-05-01] MEDS ORDERED: cefTRIAXone 1,000 MG in Water for inj. (sterile) 20 ML 10 ML IVP SCH (09:00)
[2018-05-01 11:23] VITALS: BP 128/85
--- NOTE | 2018-05-01 14:59 | Discharge Summary ---
- NOTES TO OUTPATIENT PROVIDER Notes to Outpatient Provider: No pending labs or diagnostic studies Orders not resulted at time of discharge: Pending orders 05/02/18 04:00 Basic Metabolic Panel AM 0400 Complete Blood Count [HEME] AM 0400 05/03/18 04:00 Basic Metabolic Panel AM 0400 Complete Blood Count [HEME] AM 0400 05/04/18 04:00 Basic Metabolic Panel AM 0400 Complete Blood Count [HEME] AM 0400 Date of Encounter: 05/01/18 Time of Encounter: 14:53 - Discharge Diagnosis (1) Complicated UTI (urinary tract infection) Priority: Primary Status: Acute Assessment and Plan: UA positive has had out patient treatment ( does not know name of ABx) follow urine cx and blood cx will continue ceftriaxone IVPB - already received in the ED- no allergic rxn noted will send chlamydia/gonorrhea/HIV CT A/P was negative for pyelonephritis tylenol for pain and fever Q6H PRN will start her on IVF at 125 cc per hour watch for over load 04/29- continues to have weakness, fatigue and dysuria. Complicated UTI with outpatient treatment failure. Continue Rocephin at this time broadening coverage with vancomycin and pharmacy dosing as the patient is also septic. urine cultures received but pending-adjust antibiotics based on culture results. Blood cultures pending. Patient was febrile overnight with a TMAX of 102.7. Afebrile this morning. Continue IV fluid. Chlamydia/gonorrhea/HIV nonreactive. 04/30- urine cultures preliminary-no growth. blood cultures no growth to date. d/c vancomycin. Continue ceftriaxone. Daily labs. Discontinue IV fluid. (2) Sepsis Priority: Secondary Status: Resolved Qualifiers: Sepsis type: sepsis due to unspecified organism Qualified Code(s): A41.9 - Sepsis, unspecified organism (3) Morbidly obese Priority: Secondary Status: Acute (4) Asthma Priority: Secondary Status: Acute Qualifiers: Asthma severity: moderate Asthma persistence: persistent Asthma complication type: uncomplicated Qualified Code(s): J45.40 - Moderate persistent asthma, uncomplicated (5) Depression Priority: Secondary Status: Acute Qualifiers: Depression Type: unspecified Qualified Code(s): F32.9 - Major depressive disorder, single episode, unspecified (6) Pancytopenia Priority: Secondary Status: Acute (7) DVT prophylaxis Priority: Secondary Status: Acute Hospital course: Ms. Del Castillo is a 37 year old female who presented to the ED with complaints of dysuria. She was found to have sepsis secondary to urinary tract infection. On presentation, the patient was tachycardic and febrile with temperature of 102.7. Blood culture preliminary no growth to date. Urine culture finals no growth to date. Throughout the hospital course she was treated with IV ceftriaxone. Sepsis resolved, and has continued to improve clinically throughout stay. However, she was noted to have a mild pancytopenia with WBC of 3.4, H&H of 10.3-31.6, platelets of 131. I believe this is caused by her sepsis with urinary tract infection. Overall she has had an Uneventful hospital course. Patient returned to baseline on day of discharge. No longer reporting any dysuria, denies any flank pain, has been afebrile for the last 48 hours and remained hemodynamically stable. With improvement in clinical picture the patient is ready for discharge. She will be discharged home on Bactrim DS twice a day 5 days. She has been instructed to finish her complete antibiotic course and follow-up with her PCP within one week for further evaluation. Additionally, she has been instructed to return to the ED should she develop fevers, chills, rigors, dysuria, or flank pain. Discharge discussed with: patient, nurse - Time Spent with Patient Total time spent providing and/or coordinating discharge services: Less than 30 minutes - Discharge Medications Prescriptions: Sulfamethoxazole/Trimeth DS [Bactrim DS] 1 each PO BID 5 Days #10 tablet Home Medications: Albuterol Sulfate [Ventolin Hfa] 2 puff IH Q6H PRN 04/28/18 [History] Amitriptyline [Elavil] 25 mg PO HS 04/28/18 [History] Budesonide/Formoterol 160/4.5 [Symbicort 160/4.5] 2 puff IH BIDR 04/28/18 [ History] Cetirizine HCl [Zyrtec] 10 mg PO DAILY 04/28/18 [History] Fluticasone/Vilanterol [Breo Ellipta 100-25 Mcg INH] 1 puff IH DAILY 04/28/18 [ History] Mometasone Furoate 2 spr NS DAILY 04/28/18 [History] Montelukast [Singulair] 10 mg PO DAILY 04/28/18 [History] SUMAtriptan Succinate [Imitrex] 100 mg PO BID PRN 04/28/18 [History] Sertraline [Zoloft] 100 mg PO DAILY 04/28/18 [History] Sulfamethoxazole/Trimeth DS [Bactrim DS] 1 each PO BID 5 Days #10 tablet [Rx] Allergies/Adverse Reactions: 3 Allergy/AdvReac Type Severity Reaction Status Date / Time ampicillin Allergy Rash Verified 06/12/15 10:49 Date of admission: 04/29/18 08:42 Primary care physician: Rayray Abbott DO Discharging clinician: [facility] See Anticipated date of discharge: 05/01/18 - Constitutional Vitals: Temp Pulse Resp BP Pulse Ox 97.9 F 74 20 128/85 94 05/01/18 11:22 05/01/18 11:22 05/01/18 11:22 05/01/18 11:22 05/01/18 11:22 General appearance: Present: mild distress, A&O X 3, morbidly obese - Head Head exam: Present: atraumatic, normocephalic - Eye Eye exam: Present: PERRL, conjuntiva pink, sclera anicteric Pupils: Present: PERRL - Neck Neck exam general surgery: Present: supple, trachea midline. Absent: lymphadenopathy - Respiratory Respiratory exam: Present: CTAB. Absent: accessory muscle use, rales, rhonchi, wheezes - Cardiovascular Cardiovascular exam: Present: RRR, +S1, +S2. Absent: diastolic murmur, gallop, rubs, systolic murmur - GI/Abdominal GI/Abdominal exam: Present: normal bowel sounds, soft, no peritoneal signs. Absent: distended, tenderness - Extremities Exam Extremities exam: Present: warm, radial pulses palpable and symmetrical. Absent : calf tenderness, cyanotic, pedal edema - Neurological Exam Neurological exam: Present: CN II-XII intact, oriented X3, no focal deficits. Absent: pronater drift, facial droop, speech deficit - Skin Skin exam: Present: dry, intact - Patient Status Disposition: Home, Self-Care Condition: Good Functional capacity at discharge: independent ambulation Overall status at discharge: patient is progressing back to baseline - Discharge Instructions Instructions: Urinary Tract Infection in Women (DC) Follow Up With: Garcia Abbott DO [Primary Care Provider] - (Our offices will call you with an appointment time and date)
== END 2018-05-01 16:07 | disposition home or self-care (01) | DRG 720 ==
LOC: 3BNU 13:55 → EMEROO 13:55 → 3BNU 20:22
PROVIDERS: ADMIT Internal Medicine; ATTEND Internal Medicine

== ENCOUNTER 2020-02-10 08:55 | Inpatient (IN) ==
[2020-02-10 09:07] LABS: ABG PCO2 < 13 mmHg (35-45); ABG PH 6.94 pH Units (7.32-7.45); ABG PO2 220 mmHg (85-104)
[2020-02-10] MEDS ORDERED: 0.9 % Sodium Chloride 1,000 ML IVC ONE ×2 (09:10)
[2020-02-10] MEDS ORDERED: 0.9 % Sodium Chloride 2,000 ML ONE (09:10)
[2020-02-10] MEDS ORDERED: Sodium Bicarbonate 50 MEQ/50 ML VIAL IVP ONE (09:11)
[2020-02-10] MEDS ORDERED: Insulin Human Regular 100 UNIT in 0.9 % Sodium Chloride 100 ML IVC SCH (09:15)
[2020-02-10 09:54] LABS: Bilirubin,Urine Small (Negative); Blood,Urine Large (Negative); Color,Urine Yellow (Yellow); Glucose,Urine (UA) >=1000 mg/dL (Normal); Ketones,Urine 80 mg/dL (Negative); Leukocyte Esterase,Urine Negative (Negative); Nitrite,Urine Negative (Negative); PH,Urine 5.5 pH Units (5.0-8.0); Protein,Urine >=300 mg/dL (Neg-Trace); Specific Gravity,Urine 1.027 (1.010-1.025); Urobilinogen,Urine Normal (Normal)
[2020-02-10 09:57] LABS: Bacteria,Urine None Seen per hpf (None-Few); Hyaline Casts,Urine None Seen per lpf (None-Few); Squamous Epithelial Cell,Urine Many per lpf (None-Few)
[2020-02-10 09:58] LABS: Clarity,Urine Clear (Clear)
[2020-02-10 10:04] LABS: Amphetamine Screen,Urine Negative ng/mL (Cutoff=1000); Barbiturate Screen,Urine Negative ng/mL (Cutoff=200); Benzodiazepines Screen,Urine Negative ng/mL (Cutoff=200); Cannabinoid Screen,Urine Negative ng/mL (Cutoff = 50); Cocaine Screen,Urine Negative ng/mL (Cutoff= 300); Opiate Screen,Urine Negative ng/mL (Cutoff=300); Phencyclidine Screen,Urine Negative ng/mL (Cutoff=25)
[2020-02-10 10:10] LABS: Mean Platelet Volume 11.2 fL (9.4-12.4); Nucleated Red Blood Cells 0.2 /100 WBC (0)
[2020-02-10 10:11] LABS: Basophils # 0.4 K/mcL (0.0-0.2); Basophils % 1.1 %; Hemoglobin 14.3 g/dL (11.5-15.4); Immature Granulocytes % 4.7 % (0-4); Lymphocytes # 3.2 K/mcL (0.6-4.6); Lymphocytes % 10.1 %; Mean Corpuscular HGB Conc 31.8 g/dL (31.6-35.5); Mean Corpuscular Hemoglobin 29.7 pg (28.0-33.3); Mean Corpuscular Volume 93.4 fL (83.0-100.0); Monocytes # 3.4 K/mcL (0.0-1.3); Monocytes % 10.6 %; Neutrophils # 23.3 K/mcL (1.6-8.9); Platelet Count 373 K/mcL (140-400); Red Blood Count 4.82 M/mcL (3.82-4.97); Red Cell Distribution Width 14.9 % (11.5-14.5); Segmented Neutrophils % 73.5 %
[2020-02-10 10:18] LABS: White Blood Count 31.7 K/mcL (4.3-11.1)
[2020-02-10 10:19] LABS: Platelet Estimate Normal (Normal)
[2020-02-10 10:27] LABS: Acetaminophen < 10 mcg/mL (10-20); Ethanol < 10 mg/dL (Less than 10); Salicylate < 2.5 mg/dL (15.0-30.0)
[2020-02-10 10:41] LABS: Alanine Aminotransferase 35 Units/L (7-52); Alkaline Phosphatase 126 Units/L (34-104); Aspartate Amino Transferase 31 Units/L (13-39); BUN/Creatinine Ratio 17 (6-26); Bilirubin,Total 0.4 mg/dL (0.3-1.0); Blood Urea Nitrogen 19 mg/dL (6-20); Calcium 8.7 mg/dL (8.6-10.3); Carbon Dioxide < 4 mEq/L (23-29); Chloride 106 mEq/L (98-107); Creatine Kinase 31 Units/L (30-223); Globulin 3.9 g/dL (2.4-3.5); Glucose 523 mg/dL (70-105); Lipase 793 Units/L (11-82); Magnesium 2.8 mg/dL (1.6-2.6); Osmolality,Calculated 304 (280-300); Potassium 3.5 mEq/L (3.5-5.1); Sodium 134 mEq/L (136-145); Total Protein 7.9 g/dL (6.4-8.9); Troponin I < 0.03 ng/mL (< 0.04); eGFR For African Americans > 60 (> 60); eGFR For Non-African Americans 54 (> 60)
[2020-02-10] MEDS ORDERED: cefTRIAXone 2,000 MG in Water for inj. (sterile) 20 ML IVP STA (11:21)
[2020-02-10] MEDS ORDERED: Vancomycin 1,750 MG/517.5 ML IV.SOLN IVPB SCH (12:00)
[2020-02-10] MEDS ORDERED: Vancomycin 1,750 MG in 0.9 % Sodium Chloride 250 ML IVPB SCH (12:00)
[2020-02-10] MEDS: Insulin Human Regular 100 UNIT in 0.9 % Sodium Chloride 100 ML IVC SCH ×4 (12:15→23:12)
[2020-02-10] MEDS ORDERED: Insulin Regular, Human 100 UNIT/ML IV PRN ×2 (12:16→12:24)
[2020-02-10] MEDS ORDERED: Naloxone 0.4 MG/ML INJ IVP PRN (12:24)
[2020-02-10] MEDS ORDERED: *HR* Dextrose 50 % in Water (Syg) 50 ML SYRINGE IVP PRN (12:24)
[2020-02-10] MEDS ORDERED: Isovue-370 500 ML BOTTLE IVP ONE (12:24)
[2020-02-10] MEDS ORDERED: 0.9 % Sodium Chloride w KCl 20 MEQ/1,000 ML MLS IVC SCH (12:30)
[2020-02-10 12:37] LABS: ABG Base Excess -29 mEq/L (-2 to 3); ABG HCO3 4 mEq/L (21-27); ABG Oxygen Saturation 98 % (95-98); ABG PCO2 20 mmHg (35-45); ABG PH 6.88 pH Units (7.32-7.45); ABG PO2 186 mmHg (85-104); ABG TCO2 < 5 mEq/L (20-26)
[2020-02-10] MEDS ORDERED: Ipratropium/Albuterol Neb 3 ML IH PRN (12:37)
[2020-02-10] MEDS: 0.9 % Sodium Chloride w KCl 20 MEQ/1,000 ML MLS IVC SCH ×6 (13:02→23:07)
[2020-02-10 14:12] LABS: Alanine Aminotransferase 33 Units/L (7-52); Albumin 3.7 g/dL (3.5-5.7); Alkaline Phosphatase 116 Units/L (34-104); Aspartate Amino Transferase 32 Units/L (13-39); BUN/Creatinine Ratio 18 (6-26); Bilirubin,Total 0.3 mg/dL (0.3-1.0); Blood Urea Nitrogen 18 mg/dL (6-20); Calcium 8.1 mg/dL (8.6-10.3); Carbon Dioxide < 4 mEq/L (23-29); Chloride 114 mEq/L (98-107); Creatine Kinase 35 Units/L (30-223); Globulin 3.7 g/dL (2.4-3.5); Glucose 406 mg/dL (70-105); Magnesium 2.6 mg/dL (1.6-2.6); Osmolality,Calculated 307 (280-300); Phosphorous 1.9 mg/dL (2.7-4.5); Potassium 3.4 mEq/L (3.5-5.1); Sodium 139 mEq/L (136-145); Total Protein 7.4 g/dL (6.4-8.9); eGFR For African Americans > 60 (> 60); eGFR For Non-African Americans > 60 (> 60)
[2020-02-10 14:28] LABS: Troponin I < 0.03 ng/mL (< 0.04)
[2020-02-10] MEDS ORDERED: Calcium Gluconate 1gm/50mL 1 GM/50 ML BAG IVPB PRN (14:29)
[2020-02-10] MEDS ORDERED: Potassium Phosphate 44 MEQ in 0.9 % Sodium Chloride 250 ML IVPB ONE ×2 (14:29→21:19)
[2020-02-10] MEDS ORDERED: *HR* Enoxaparin 120 MG/0.8 ML SYRINGE SQ SCH (15:00)
[2020-02-10 15:08] LABS: VBG HCO3 4 mEq/L (21-27); VBG PCO2 24 mmHg (41-51); VBG PH 6.81 pH Units (7.32-7.42); VBG PO2 180 mmHg (25-50)
[2020-02-10 15:27] LABS: ABG Base Excess -24 mEq/L (-2 to 3); ABG HCO3 6 mEq/L (21-27); ABG Oxygen Saturation 99 % (95-98); ABG PCO2 22 mmHg (35-45); ABG PH 7.01 pH Units (7.32-7.45); ABG PO2 182 mmHg (85-104); ABG TCO2 6 mEq/L (20-26)
[2020-02-10] MEDS ORDERED: *HR* Heparin 5,000 UNIT/ML VIAL SQ SCH ×2 (16:00→22:00)
[2020-02-10 16:15] LABS: BUN/Creatinine Ratio 18 (6-26); Blood Urea Nitrogen 17 mg/dL (6-20); Calcium 7.7 mg/dL (8.6-10.3); Carbon Dioxide < 4 mEq/L (23-29); Chloride 122 mEq/L (98-107); Glucose 252 mg/dL (70-105); Magnesium 2.4 mg/dL (1.6-2.6); Osmolality,Calculated 304 (280-300); Phosphorous < 1.0 mg/dL (2.7-4.5); Potassium 3.1 mEq/L (3.5-5.1); Sodium 142 mEq/L (136-145); eGFR For African Americans > 60 (> 60); eGFR For Non-African Americans > 60 (> 60)
[2020-02-10 16:49] LABS: Thyroid Stimulating Hormone 0.313 mcIU/mL (0.340-5.600); Triiodothyronine (T3) Free 2.42 pg/mL (2.50-3.90)
[2020-02-10] MEDS: D5% in 0.45% NACL w KCl 20 MEQ/1,000 ML MLS IVC PRN ×2 (17:09→21:14)
[2020-02-10 20:39] LABS: Basophils # 0.2 K/mcL (0.0-0.2); Basophils % 0.8 %; Hematocrit 38.8 % (35.3-44.9); Hemoglobin 12.9 g/dL (11.5-15.4); Immature Granulocytes % 3.8 % (0-4); Lymphocytes # 1.3 K/mcL (0.6-4.6); Lymphocytes % 6.2 %; Mean Corpuscular HGB Conc 33.2 g/dL (31.6-35.5); Mean Corpuscular Hemoglobin 30.4 pg (28.0-33.3); Mean Corpuscular Volume 91.5 fL (83.0-100.0); Mean Platelet Volume 10.7 fL (9.4-12.4); Monocytes # 1.8 K/mcL (0.0-1.3); Monocytes % 8.5 %; Neutrophils # 17.2 K/mcL (1.6-8.9); Nucleated Red Blood Cells 0.1 /100 WBC (0); Platelet Count 149 K/mcL (140-400); Red Blood Count 4.24 M/mcL (3.82-4.97); Red Cell Distribution Width 14.9 % (11.5-14.5); Segmented Neutrophils % 80.7 %; White Blood Count 21.3 K/mcL (4.3-11.1)
[2020-02-10 20:47] LABS: VBG HCO3 6 mEq/L (21-27); VBG Ionized Calcium 1.33 mmol/L (1.15-1.35); VBG PCO2 24 mmHg (41-51); VBG PH 7.02 pH Units (7.32-7.42); VBG PO2 129 mmHg (25-50)
[2020-02-10 21:05] LABS: BUN/Creatinine Ratio 14 (6-26); Blood Urea Nitrogen 15 mg/dL (6-20); Carbon Dioxide 4 mEq/L (23-29); Chloride 124 mEq/L (98-107); Glucose 252 mg/dL (70-105); Magnesium 2.1 mg/dL (1.6-2.6); Osmolality,Calculated 307 (280-300); Phosphorous < 1.0 mg/dL (2.7-4.5); Potassium 2.9 mEq/L (3.5-5.1); Sodium 144 mEq/L (136-145); eGFR For African Americans > 60 (> 60); eGFR For Non-African Americans 59 (> 60)
[2020-02-10] MEDS: Potassium Chloride 40 MEQ/200 ML BAG IVPB PRN (23:28)
[2020-02-11 00:49] LABS: VBG HCO3 7 mEq/L (21-27); VBG Ionized Calcium 1.39 mmol/L (1.15-1.35); VBG PCO2 27 mmHg (41-51); VBG PH 7.05 pH Units (7.32-7.42); VBG PO2 98 mmHg (25-50)
[2020-02-11] MEDS: 0.9 % Sodium Chloride w KCl 20 MEQ/1,000 ML MLS IVC SCH ×4 (01:01→06:59)
[2020-02-11 01:07] LABS: BUN/Creatinine Ratio 13 (6-26); Blood Urea Nitrogen 14 mg/dL (6-20); Carbon Dioxide 7 mEq/L (23-29); Chloride 127 mEq/L (98-107); Glucose 181 mg/dL (70-105); Magnesium 1.9 mg/dL (1.6-2.6); Osmolality,Calculated 305 (280-300); Phosphorous < 1.0 mg/dL (2.7-4.5); Potassium 2.7 mEq/L (3.5-5.1); Sodium 145 mEq/L (136-145); eGFR For African Americans > 60 (> 60); eGFR For Non-African Americans 56 (> 60)
[2020-02-11] MEDS: Potassium Chloride 40 MEQ/200 ML BAG IVPB PRN ×5 (01:32→15:22)
[2020-02-11] MEDS: Insulin Human Regular 100 UNIT in 0.9 % Sodium Chloride 100 ML IVC SCH ×7 (01:33→23:59)
[2020-02-11] MEDS ORDERED: Ondansetron 4 MG/2 ML VIAL IVP PRN (02:22)
[2020-02-11] MEDS: D5% in 0.45% NACL w KCl 20 MEQ/1,000 ML MLS IVC PRN ×2 (03:08→07:02)
[2020-02-11 04:53] LABS: Basophils # 0.1 K/mcL (0.0-0.2); Basophils % 0.4 %; Hematocrit 36.6 % (35.3-44.9); Hemoglobin 12.3 g/dL (11.5-15.4); Immature Granulocytes % 1.6 % (0-4); Lymphocytes # 0.6 K/mcL (0.6-4.6); Lymphocytes % 3.3 %; Mean Corpuscular HGB Conc 33.6 g/dL (31.6-35.5); Mean Corpuscular Hemoglobin 29.8 pg (28.0-33.3); Mean Corpuscular Volume 88.6 fL (83.0-100.0); Mean Platelet Volume 10.4 fL (9.4-12.4); Monocytes # 2.2 K/mcL (0.0-1.3); Monocytes % 11.5 %; Neutrophils # 16.1 K/mcL (1.6-8.9); Platelet Count 145 K/mcL (140-400); Red Blood Count 4.13 M/mcL (3.82-4.97); Red Cell Distribution Width 14.8 % (11.5-14.5); Segmented Neutrophils % 83.2 %; White Blood Count 19.3 K/mcL (4.3-11.1)
[2020-02-11 04:59] LABS: VBG HCO3 10 mEq/L (21-27); VBG Ionized Calcium 1.39 mmol/L (1.15-1.35); VBG PCO2 31 mmHg (41-51); VBG PO2 106 mmHg (25-50)
[2020-02-11 05:17] LABS: Alanine Aminotransferase 25 Units/L (7-52); Albumin 3.3 g/dL (3.5-5.7); Albumin/Globulin Ratio 1.1 (1.1-2.2); Alkaline Phosphatase 89 Units/L (34-104); Aspartate Amino Transferase 21 Units/L (13-39); BUN/Creatinine Ratio 13 (6-26); Bilirubin,Direct 0.1 mg/dL (0.0-0.2); Bilirubin,Indirect 0.2 mg/dL (0.0-1.0); Bilirubin,Total 0.3 mg/dL (0.3-1.0); Blood Urea Nitrogen 13 mg/dL (6-20); Calcium 8.3 mg/dL (8.6-10.3); Carbon Dioxide 9 mEq/L (23-29); Chloride 130 mEq/L (98-107); Glucose 154 mg/dL (70-105); Osmolality,Calculated 307 (280-300); Phosphorous < 1.0 mg/dL (2.7-4.5); Potassium 2.5 mEq/L (3.5-5.1); Sodium 147 mEq/L (136-145); Total Protein 6.3 g/dL (6.4-8.9); eGFR For African Americans > 60 (> 60); eGFR For Non-African Americans > 60 (> 60)
[2020-02-11] MEDS: *HR* Heparin 5,000 UNIT/ML VIAL SQ SCH ×3 (05:23→20:41)
[2020-02-11] MEDS: Potassium Phosphate 44 MEQ in 0.9 % Sodium Chloride 250 ML IVPB PRN ×2 (05:51→18:54)
[2020-02-11] MEDS ORDERED: Potassium Chloride 40 MEQ in D5% in Lactated Ringers 1,000 ML IVC SCH (07:45)
[2020-02-11] MEDS: Potassium Chloride 40 MEQ in D5% in Lactated Ringers 1,000 ML IVC SCH ×2 (08:30→22:26)
[2020-02-11] MEDS: Nystatin POWDER 30 GM BOTTLE TP SCH ×3 (09:00→20:41)
[2020-02-11 09:12] LABS: Estimated Average Glucose 335 mg/dl
[2020-02-11] MEDS ORDERED: D5% in Water 1,000 ML IVC ONE (09:28)
[2020-02-11] MEDS ORDERED: D5% in Water 1,000 ML IVC SCH ×2 (09:30→11:15)
[2020-02-11 10:06] LABS: VBG HCO3 11 mEq/L (21-27); VBG PCO2 31 mmHg (41-51); VBG PH 7.14 pH Units (7.32-7.42); VBG PO2 111 mmHg (25-50)
[2020-02-11] MEDS: *HR* Dextrose 50 % in Water (Syg) 50 ML SYRINGE IVP PRN (10:15)
[2020-02-11 10:26] LABS: BUN/Creatinine Ratio 12 (6-26); Blood Urea Nitrogen 12 mg/dL (6-20); Calcium 8.7 mg/dL (8.6-10.3); Carbon Dioxide 10 mEq/L (23-29); Chloride 130 mEq/L (98-107); Glucose 92 mg/dL (70-105); Magnesium 2.2 mg/dL (1.6-2.6); Osmolality,Calculated 307 (280-300); Phosphorous < 1.0 mg/dL (2.7-4.5); Potassium 2.9 mEq/L (3.5-5.1); Sodium 149 mEq/L (136-145); eGFR For African Americans > 60 (> 60); eGFR For Non-African Americans 59 (> 60)
[2020-02-11] MEDS ORDERED: Potassium Phosphate 44 MEQ in 0.9 % Sodium Chloride 250 ML IVPB ONE (10:27)
[2020-02-11] MEDS: *HR* Metoprolol 5 MG/5 ML VIAL IVP SCH ×3 (10:45→23:39)
[2020-02-11] MEDS: D10% in Water 500 ML IVC SCH ×2 (14:00→19:24)
[2020-02-11] MEDS ORDERED: D10% in Water 1,000 ML ONE (14:00)
[2020-02-11 14:12] LABS: VBG HCO3 12 mEq/L (21-27); VBG PCO2 26 mmHg (41-51); VBG PH 7.28 pH Units (7.32-7.42); VBG PO2 120 mmHg (25-50)
[2020-02-11 14:29] LABS: BUN/Creatinine Ratio 10 (6-26); Blood Urea Nitrogen 10 mg/dL (6-20); Calcium 8.5 mg/dL (8.6-10.3); Carbon Dioxide 10 mEq/L (23-29); Chloride 131 mEq/L (98-107); Glucose 113 mg/dL (70-105); Magnesium 2.4 mg/dL (1.6-2.6); Osmolality,Calculated 308 (280-300); Phosphorous < 1.0 mg/dL (2.7-4.5); Potassium 3.3 mEq/L (3.5-5.1); Sodium 149 mEq/L (136-145); eGFR For African Americans > 60 (> 60); eGFR For Non-African Americans > 60 (> 60)
[2020-02-11 17:55] LABS: VBG HCO3 13 mEq/L (21-27); VBG PCO2 29 mmHg (41-51); VBG PH 7.26 pH Units (7.32-7.42); VBG PO2 109 mmHg (25-50)
[2020-02-11 18:13] LABS: BUN/Creatinine Ratio 9 (6-26); Blood Urea Nitrogen 9 mg/dL (6-20); Calcium 8.6 mg/dL (8.6-10.3); Carbon Dioxide 11 mEq/L (23-29); Chloride 130 mEq/L (98-107); Glucose 280 mg/dL (70-105); Osmolality,Calculated 317 (280-300); Potassium 3.8 mEq/L (3.5-5.1); Sodium 149 mEq/L (136-145); eGFR For African Americans > 60 (> 60); eGFR For Non-African Americans 59 (> 60)
[2020-02-11 18:16] LABS: Magnesium 2.3 mg/dL (1.6-2.6); Phosphorous < 1.0 mg/dL (2.7-4.5)
[2020-02-11 23:50] LABS: Alanine Aminotransferase 23 Units/L (7-52); Alkaline Phosphatase 90 Units/L (34-104); Aspartate Amino Transferase 24 Units/L (13-39); BUN/Creatinine Ratio 8 (6-26); Bilirubin,Total 0.6 mg/dL (0.3-1.0); Blood Urea Nitrogen 8 mg/dL (6-20); Calcium 8.5 mg/dL (8.6-10.3); Carbon Dioxide 11 mEq/L (23-29); Chloride 132 mEq/L (98-107); Glucose 130 mg/dL (70-105); Magnesium 2.2 mg/dL (1.6-2.6); Osmolality,Calculated 316 (280-300); Phosphorous < 1.0 mg/dL (2.7-4.5); Potassium 3.1 mEq/L (3.5-5.1); Sodium 153 mEq/L (136-145); eGFR For African Americans > 60 (> 60); eGFR For Non-African Americans 60 (> 60)
[2020-02-12] MEDS: D10% in Water 500 ML IVC SCH ×5 (00:18→19:00)
[2020-02-12] MEDS: *HR* Dextrose 50 % in Water (Syg) 50 ML SYRINGE IVP PRN (01:07)
[2020-02-12] MEDS: Potassium Chloride 40 MEQ in D5% in 0.45% NACL 1,000 ML IVC SCH ×4 (01:08→23:00)
[2020-02-12] MEDS ORDERED: Acetaminophen IV 1,000 MG/100 ML INFUS..BTL IVPB ONE (01:52)
[2020-02-12] MEDS ORDERED: Vancomycin 1,750 MG in 0.9 % Sodium Chloride 250 ML IVPB SCH (02:00)
[2020-02-12] MEDS: Potassium Phosphate 44 MEQ in 0.9 % Sodium Chloride 250 ML IVPB PRN ×2 (02:14→11:32)
[2020-02-12] MEDS ORDERED: Vancomycin 2,000 MG/520 ML IV.SOLN IVPB ONE (02:23)
[2020-02-12 03:15] LABS: Basophils % 0.3 %; Hematocrit 30.7 % (35.3-44.9); Immature Granulocytes % 1.5 % (0-4); Lymphocytes # 0.8 K/mcL (0.6-4.6); Lymphocytes % 5.5 %; Mean Corpuscular HGB Conc 34.9 g/dL (31.6-35.5); Mean Corpuscular Hemoglobin 30.4 pg (28.0-33.3); Mean Corpuscular Volume 87.2 fL (83.0-100.0); Mean Platelet Volume 10.2 fL (9.4-12.4); Monocytes # 1.5 K/mcL (0.0-1.3); Monocytes % 10.8 %; Neutrophils # 11.7 K/mcL (1.6-8.9); Nucleated Red Blood Cells 0.3 /100 WBC (0); Platelet Count 130 K/mcL (140-400); Red Blood Count 3.52 M/mcL (3.82-4.97); Segmented Neutrophils % 81.9 %; White Blood Count 14.3 K/mcL (4.3-11.1)
[2020-02-12 03:16] LABS: Hemoglobin 10.7 g/dL (11.5-15.4)
[2020-02-12 03:19] LABS: VBG Ionized Calcium 1.35 mmol/L (1.15-1.35)
[2020-02-12] MEDS ORDERED: *HR* LORazepam 2 MG/ML VIAL IVP ONE ×2 (03:29→04:35)
[2020-02-12 03:33] LABS: Alanine Aminotransferase 23 Units/L (7-52); Albumin/Globulin Ratio 1.1 (1.1-2.2); Alkaline Phosphatase 89 Units/L (34-104); Aspartate Amino Transferase 25 Units/L (13-39); BUN/Creatinine Ratio 7 (6-26); Bilirubin,Total 0.6 mg/dL (0.3-1.0); Blood Urea Nitrogen 7 mg/dL (6-20); Calcium 8.5 mg/dL (8.6-10.3); Carbon Dioxide 12 mEq/L (23-29); Chloride 131 mEq/L (98-107); Globulin 2.7 g/dL (2.4-3.5); Glucose 156 mg/dL (70-105); Osmolality,Calculated 313 (280-300); Phosphorous 1.9 mg/dL (2.7-4.5); Potassium 3.4 mEq/L (3.5-5.1); Sodium 151 mEq/L (136-145); Total Protein 5.7 g/dL (6.4-8.9); eGFR For African Americans > 60 (> 60); eGFR For Non-African Americans 59 (> 60)
[2020-02-12] MEDS: *HR* Heparin 5,000 UNIT/ML VIAL SQ SCH ×3 (05:09→22:10)
[2020-02-12] MEDS: *HR* Metoprolol 5 MG/5 ML VIAL IVP SCH ×3 (05:09→18:43)
[2020-02-12] MEDS: Insulin Human Regular 100 UNIT in 0.9 % Sodium Chloride 100 ML IVC SCH ×4 (07:14→22:45)
[2020-02-12] MEDS ORDERED: Fluconazole 400 MG/200 ML 400 MG/200 ML BAG IVPB SCH (09:00)
[2020-02-12 09:32] LABS: VBG Ionized Calcium 1.32 mmol/L (1.15-1.35)
[2020-02-12 09:36] LABS: Alanine Aminotransferase 22 Units/L (7-52); Albumin 2.9 g/dL (3.5-5.7); Albumin/Globulin Ratio 1.2 (1.1-2.2); Alkaline Phosphatase 87 Units/L (34-104); Aspartate Amino Transferase 22 Units/L (13-39); BUN/Creatinine Ratio 6 (6-26); Bilirubin,Total 0.4 mg/dL (0.3-1.0); Blood Urea Nitrogen 7 mg/dL (6-20); Carbon Dioxide 13 mEq/L (23-29); Chloride 132 mEq/L (98-107); Globulin 2.5 g/dL (2.4-3.5); Glucose 161 mg/dL (70-105); Osmolality,Calculated 315 (280-300); Potassium 2.9 mEq/L (3.5-5.1); Sodium 152 mEq/L (136-145); Total Protein 5.4 g/dL (6.4-8.9); eGFR For African Americans > 60 (> 60); eGFR For Non-African Americans 54 (> 60)
[2020-02-12] MEDS: Fluconazole 400 MG/200 ML 400 MG/200 ML BAG IVPB SCH (09:47)
[2020-02-12] MEDS: Cefepime HCl 2,000 MG in Water for inj. (sterile) 20 ML IVP SCH ×2 (09:47→16:31)
[2020-02-12] MEDS: Nystatin POWDER 30 GM BOTTLE TP SCH ×3 (09:48→22:10)
[2020-02-12] MEDS ORDERED: Haloperidol Lactate 5 MG/ML VIAL IM PRN (10:22)
[2020-02-12] MEDS ORDERED: Vancomycin 1,500 MG/265 ML IV.SOLN IVPB SCH (14:00)
[2020-02-12] MEDS: D5 IVPB SCH (15:33)
[2020-02-12] MEDS: WATER IVPB SCH (15:33)
[2020-02-12] MEDS: ACYCLOVIR IVPB SCH (15:33)
[2020-02-12] MEDS: Vancomycin 1,750 MG/517.5 ML IV.SOLN IVPB SCH (16:32)
[2020-02-12 17:19] LABS: VBG Ionized Calcium 1.25 mmol/L (1.15-1.35); VBG PH 7.25 pH Units (7.32-7.42)
[2020-02-12 17:31] LABS: Alanine Aminotransferase 21 Units/L (7-52); Albumin 2.7 g/dL (3.5-5.7); Albumin/Globulin Ratio 1.1 (1.1-2.2); Alkaline Phosphatase 84 Units/L (34-104); Aspartate Amino Transferase 24 Units/L (13-39); BUN/Creatinine Ratio 5 (6-26); Bilirubin,Total 0.5 mg/dL (0.3-1.0); Blood Urea Nitrogen 6 mg/dL (6-20); Calcium 7.7 mg/dL (8.6-10.3); Carbon Dioxide 13 mEq/L (23-29); Chloride 129 mEq/L (98-107); Globulin 2.5 g/dL (2.4-3.5); Glucose 336 mg/dL (70-105); Magnesium 1.7 mg/dL (1.6-2.6); Osmolality,Calculated 319 (280-300); Phosphorous 3.5 mg/dL (2.7-4.5); Potassium 3.4 mEq/L (3.5-5.1); Sodium 149 mEq/L (136-145); Total Protein 5.2 g/dL (6.4-8.9); eGFR For African Americans > 60 (> 60); eGFR For Non-African Americans 52 (> 60)
[2020-02-12] MEDS ORDERED: Prochlorperazine 10 MG/2 ML VIAL IVP PRN (17:41)
[2020-02-12] MEDS: Potassium Chloride 40 MEQ/200 ML BAG IVPB PRN (18:46)
[2020-02-12] MEDS ORDERED: Dexmedetomidine HCl 400 MCG/100 ML MLS IVC ONE (20:02)
[2020-02-12] MEDS: Dexmedetomidine HCl 400 MCG/100 ML MLS IVC SCH (20:32)
[2020-02-12 21:59] LABS: ABG Base Excess -11 mEq/L (-2 to 3); ABG HCO3 15 mEq/L (21-27); ABG Oxygen Saturation 97 % (95-98); ABG PCO2 32 mmHg (35-45); ABG PH 7.28 pH Units (7.32-7.45); ABG PO2 103 mmHg (85-104); ABG TCO2 16 mEq/L (20-26)
[2020-02-12 23:49] LABS: VBG Ionized Calcium 1.29 mmol/L (1.15-1.35)
[2020-02-13 00:07] LABS: Alanine Aminotransferase 21 Units/L (7-52); Albumin 2.5 g/dL (3.5-5.7); Alkaline Phosphatase 76 Units/L (34-104); Aspartate Amino Transferase 23 Units/L (13-39); BUN/Creatinine Ratio 5 (6-26); Bilirubin,Total 0.3 mg/dL (0.3-1.0); Blood Urea Nitrogen 5 mg/dL (6-20); Calcium 7.3 mg/dL (8.6-10.3); Carbon Dioxide 14 mEq/L (23-29); Chloride 131 mEq/L (98-107); Globulin 2.4 g/dL (2.4-3.5); Glucose 75 mg/dL (70-105); Magnesium 1.6 mg/dL (1.6-2.6); Osmolality,Calculated 310 (280-300); Phosphorous 3.8 mg/dL (2.7-4.5); Potassium 3.8 mEq/L (3.5-5.1); Sodium 152 mEq/L (136-145); Total Protein 4.9 g/dL (6.4-8.9); eGFR For African Americans > 60 (> 60); eGFR For Non-African Americans 55 (> 60)
[2020-02-13] MEDS: Cefepime HCl 2,000 MG in Water for inj. (sterile) 20 ML IVP SCH ×4 (00:26→23:00)
[2020-02-13] MEDS: *HR* Metoprolol 5 MG/5 ML VIAL IVP SCH ×5 (00:26→23:00)
[2020-02-13] MEDS: Potassium Chloride 40 MEQ/200 ML BAG IVPB PRN (00:28)
[2020-02-13] MEDS: D5 IVPB SCH ×4 (01:00→23:27)
[2020-02-13] MEDS: WATER IVPB SCH ×4 (01:00→23:27)
[2020-02-13] MEDS: ACYCLOVIR IVPB SCH ×4 (01:00→23:27)
[2020-02-13] MEDS: D10% in Water 500 ML IVC SCH (02:15)
[2020-02-13] MEDS: Dexmedetomidine HCl 400 MCG/100 ML MLS IVC SCH (04:00)
[2020-02-13] MEDS: Vancomycin 1,750 MG/517.5 ML IV.SOLN IVPB SCH ×2 (04:51→20:20)
[2020-02-13 05:27] LABS: Hematocrit 28.7 % (35.3-44.9); Hemoglobin 9.6 g/dL (11.5-15.4); Mean Corpuscular HGB Conc 33.4 g/dL (31.6-35.5); Mean Corpuscular Hemoglobin 30.1 pg (28.0-33.3); Mean Platelet Volume 10.7 fL (9.4-12.4); Platelet Count 113 K/mcL (140-400); Red Blood Count 3.19 M/mcL (3.82-4.97); White Blood Count 8.7 K/mcL (4.3-11.1)
[2020-02-13 05:48] LABS: Albumin 2.7 g/dL (3.5-5.7); Albumin/Globulin Ratio 1.1 (1.1-2.2); Bilirubin,Total 0.3 mg/dL (0.3-1.0); Calcium 7.7 mg/dL (8.6-10.3); Globulin 2.4 g/dL (2.4-3.5); Magnesium 2.1 mg/dL (1.6-2.6); Phosphorous 2.7 mg/dL (2.7-4.5); Potassium 4.3 mEq/L (3.5-5.1); Total Protein 5.1 g/dL (6.4-8.9)
[2020-02-13] MEDS: *HR* Heparin 5,000 UNIT/ML VIAL SQ SCH ×3 (05:54→20:28)
[2020-02-13 06:34] LABS: ABG Base Excess -11 mEq/L (-2 to 3); ABG HCO3 15 mEq/L (21-27); ABG Oxygen Saturation 90 % (95-98); ABG PCO2 35 mmHg (35-45); ABG PH 7.24 pH Units (7.32-7.45); ABG PO2 67 mmHg (85-104); ABG TCO2 16 mEq/L (20-26)
[2020-02-13] MEDS: Potassium Chloride 40 MEQ in D5% in 0.45% NACL 1,000 ML IVC SCH (06:46)
[2020-02-13] MEDS: Nystatin POWDER 30 GM BOTTLE TP SCH ×3 (08:05→20:29)
[2020-02-13] MEDS: Fluconazole 400 MG/200 ML 400 MG/200 ML BAG IVPB SCH (08:06)
[2020-02-13] MEDS: Potassium Phosphate 44 MEQ in 0.9 % Sodium Chloride 250 ML IVPB PRN (08:32)
[2020-02-13] MEDS: Insulin Human Regular 100 UNIT in 0.9 % Sodium Chloride 100 ML IVC SCH ×2 (09:00→16:09)
[2020-02-13] MEDS ORDERED: Ringers Solution, Lactated 1,000 ML IVC ONE (09:03)
[2020-02-13] MEDS: D5% in Water 1,000 ML IVC SCH ×3 (09:05→22:40)
[2020-02-13] MEDS ORDERED: Norepinephrine 4 MG in 0.9 % Sodium Chloride 250 ML IVC SCH (09:15)
[2020-02-13 10:02] LABS: VBG Ionized Calcium 1.23 mmol/L (1.15-1.35)
[2020-02-13 10:19] LABS: Albumin 2.5 g/dL (3.5-5.7); Albumin/Globulin Ratio 1.1 (1.1-2.2); Bilirubin,Total 0.4 mg/dL (0.3-1.0); Calcium 7.5 mg/dL (8.6-10.3); Globulin 2.3 g/dL (2.4-3.5); Magnesium 1.9 mg/dL (1.6-2.6); Phosphorous 3.6 mg/dL (2.7-4.5); Potassium 4.6 mEq/L (3.5-5.1); Total Protein 4.8 g/dL (6.4-8.9)
[2020-02-13 11:03] LABS: Hepatitis B Surface Antigen Nonreactive (Nonreactive)
[2020-02-13 11:27] LABS: Folate 5.6 ng/mL (3.0-16.0)
[2020-02-13 11:31] LABS: Hepatitis C Virus Antibody Nonreactive (Nonreactive)
[2020-02-13 11:33] LABS: Hepatitis B Core IgM Nonreactive (Nonreactive)
[2020-02-13 11:34] LABS: Hepatitis A Antibody IgM Nonreactive (Nonreactive)
[2020-02-13] MEDS: Norepinephrine 4 MG in 0.9 % Sodium Chloride 250 ML IVC SCH (14:21)
[2020-02-13 15:45] LABS: Magnesium 1.9 mg/dL (1.6-2.6); Phosphorous 3.3 mg/dL (2.7-4.5); Potassium 3.9 mEq/L (3.5-5.1)
[2020-02-13] MEDS ORDERED: *HR* Dextrose 50 % in Water (Syg) 50 ML SYRINGE IVP PRN (15:52)
[2020-02-13 16:26] LABS: Red Blood Cell,CSF < 0.002 M/mcL
[2020-02-13 16:41] LABS: Glucose,CSF 130 mg/dL (40-70); Total Protein,CSF 37 mg/dL (15-45)
[2020-02-13] MEDS ORDERED: Potassium Chloride Elixir 20 MEQ/15 ML UDC PO ONE (17:04)
[2020-02-13 17:34] LABS: Basophils,CSF 0 %; Eosinophils,CSF 0 %
[2020-02-13 17:47] LABS: Appearance,CSF Clear (Clear)
[2020-02-13] MEDS: 0.9 % Sodium Chloride w KCl 20 MEQ/1,000 ML MLS IVC SCH (20:19)
[2020-02-13] MEDS: Potassium Chloride 40 MEQ in D5% in Lactated Ringers 1,000 ML IVC SCH (21:10)
[2020-02-13 23:50] LABS: Calcium 8.2 mg/dL (8.6-10.3); Magnesium 2.5 mg/dL (1.6-2.6); Phosphorous 2.4 mg/dL (2.7-4.5); Potassium 3.6 mEq/L (3.5-5.1)
[2020-02-14] MEDS: Potassium Chloride 40 MEQ/200 ML BAG IVPB PRN ×2 (00:35→05:47)
[2020-02-14] MEDS: Potassium Phosphate 44 MEQ in 0.9 % Sodium Chloride 250 ML IVPB PRN (00:45)
[2020-02-14 05:04] LABS: Hematocrit 29.4 % (35.3-44.9); Mean Corpuscular Hemoglobin 30.4 pg (28.0-33.3); Mean Corpuscular Volume 89.4 fL (83.0-100.0); Mean Platelet Volume 11.4 fL (9.4-12.4); Platelet Count 131 K/mcL (140-400); Red Blood Count 3.29 M/mcL (3.82-4.97); Red Cell Distribution Width 15.9 % (11.5-14.5); White Blood Count 7.8 K/mcL (4.3-11.1)
[2020-02-14 05:09] LABS: VBG Ionized Calcium 1.23 mmol/L (1.15-1.35)
[2020-02-14] MEDS: D5% in Water 1,000 ML IVC SCH ×2 (05:22→13:00)
[2020-02-14] MEDS: *HR* Heparin 5,000 UNIT/ML VIAL SQ SCH ×4 (05:23→20:43)
[2020-02-14] MEDS: *HR* Metoprolol 5 MG/5 ML VIAL IVP SCH ×2 (05:23→11:26)
[2020-02-14 05:24] LABS: Magnesium 2.3 mg/dL (1.6-2.6); Phosphorous 5.1 mg/dL (2.7-4.5); Potassium 3.9 mEq/L (3.5-5.1)
[2020-02-14] MEDS: Dexmedetomidine HCl 400 MCG/100 ML MLS IVC SCH (05:29)
[2020-02-14] MEDS: Insulin Human Regular 100 UNIT in 0.9 % Sodium Chloride 100 ML IVC SCH (06:51)
[2020-02-14] MEDS: WATER IVPB SCH (08:31)
[2020-02-14] MEDS: D5 IVPB SCH (08:31)
[2020-02-14] MEDS: Cefepime HCl 2,000 MG in Water for inj. (sterile) 20 ML IVP SCH (08:31)
[2020-02-14] MEDS: ACYCLOVIR IVPB SCH (08:31)
[2020-02-14] MEDS: Fluconazole 400 MG/200 ML 400 MG/200 ML BAG IVPB SCH (08:39)
[2020-02-14] MEDS: Norepinephrine 4 MG in 0.9 % Sodium Chloride 250 ML IVC SCH (08:41)
[2020-02-14] MEDS: Nystatin POWDER 30 GM BOTTLE TP SCH ×3 (08:42→20:38)
[2020-02-14] MEDS ORDERED: *HR* Dextrose 50 % in Water (Syg) 50 ML SYRINGE IVP PRN ×2 (11:42→13:21)
[2020-02-14] MEDS ORDERED: Dextrose Gel 15 GM/37.5 ML TUBE PO PRN ×4 (11:42→13:21)
[2020-02-14] MEDS ORDERED: D5% in Water 1,000 ML IVC PRN ×2 (11:42→13:21)
[2020-02-14] MEDS ORDERED: Insulin DETEMIR 100 UNIT/ML X5UNITS SQ SCH (11:45)
[2020-02-14] MEDS ORDERED: Insulin LISPRO 300 UNITS/3 ML VIAL SQ SCH ×2 (12:00)
[2020-02-14] MEDS ORDERED: D5% in Water 1,000 ML IVC SCH (12:45)
[2020-02-14] MEDS ORDERED: Ipratropium/Albuterol Neb 3 ML IH PRN (13:21)
[2020-02-14 13:30] LABS: Calcium 8.1 mg/dL (8.6-10.3); Magnesium 2.2 mg/dL (1.6-2.6); Phosphorous 3.3 mg/dL (2.7-4.5); Potassium 3.2 mEq/L (3.5-5.1)
[2020-02-14] MEDS: Insulin LISPRO 300 UNITS/3 ML VIAL SQ SCH ×3 (17:09→20:37)
[2020-02-14] MEDS: Insulin DETEMIR 100 UNIT/ML X5UNITS SQ SCH (20:39)
[2020-02-15] MEDS: Insulin LISPRO 300 UNITS/3 ML VIAL SQ SCH ×8 (01:34→16:34)
[2020-02-15 04:26] LABS: Hematocrit 25.6 % (35.3-44.9); Hemoglobin 8.7 g/dL (11.5-15.4); Mean Corpuscular Hemoglobin 30.2 pg (28.0-33.3); Mean Corpuscular Volume 88.9 fL (83.0-100.0); Platelet Count 125 K/mcL (140-400); Red Blood Count 2.88 M/mcL (3.82-4.97); Red Cell Distribution Width 15.6 % (11.5-14.5); White Blood Count 6.2 K/mcL (4.3-11.1)
[2020-02-15 04:46] LABS: Calcium 7.8 mg/dL (8.6-10.3); Potassium 3.3 mEq/L (3.5-5.1)
[2020-02-15] MEDS: *HR* Heparin 5,000 UNIT/ML VIAL SQ SCH ×3 (05:43→21:49)
[2020-02-15] MEDS: Fluconazole 100 MG TABLET PO SCH (07:49)
[2020-02-15] MEDS: Insulin DETEMIR 100 UNIT/ML X5UNITS SQ SCH ×2 (08:42→21:48)
[2020-02-15] MEDS: Nystatin POWDER 30 GM BOTTLE TP SCH ×3 (08:42→21:49)
[2020-02-15] MEDS: D5% in Water 1,000 ML IVC SCH (08:43)
[2020-02-15] MEDS ORDERED: Fluconazole 100 MG TABLET PO SCH (09:00)
[2020-02-16 05:09] LABS: Hematocrit 29.2 % (35.3-44.9); Hemoglobin 9.6 g/dL (11.5-15.4); Mean Corpuscular HGB Conc 32.9 g/dL (31.6-35.5); Mean Corpuscular Hemoglobin 29.5 pg (28.0-33.3); Mean Corpuscular Volume 89.8 fL (83.0-100.0); Mean Platelet Volume 11.1 fL (9.4-12.4); Platelet Count 154 K/mcL (140-400); Red Blood Count 3.25 M/mcL (3.82-4.97); Red Cell Distribution Width 15.3 % (11.5-14.5); White Blood Count 6.2 K/mcL (4.3-11.1)
[2020-02-16 05:28] LABS: BUN/Creatinine Ratio 8 (6-26); Blood Urea Nitrogen 9 mg/dL (6-20); Calcium 8.2 mg/dL (8.6-10.3); Carbon Dioxide 20 mEq/L (23-29); Chloride 115 mEq/L (98-107); Glucose 129 mg/dL (70-105); Osmolality,Calculated 298 (280-300); Potassium 3.7 mEq/L (3.5-5.1); Sodium 144 mEq/L (136-145); eGFR For African Americans > 60 (> 60); eGFR For Non-African Americans 52 (> 60)
[2020-02-16] MEDS: *HR* Heparin 5,000 UNIT/ML VIAL SQ SCH ×2 (05:35→15:11)
[2020-02-16] MEDS ORDERED: Vancomycin 1,250 MG/262.5 ML IV.SOLN IVPB ONE (06:00)
[2020-02-16] MEDS: Fluconazole 100 MG TABLET PO SCH (08:32)
[2020-02-16] MEDS: Insulin LISPRO 300 UNITS/3 ML VIAL SQ SCH ×6 (08:33→16:20)
[2020-02-16] MEDS: Nystatin POWDER 30 GM BOTTLE TP SCH (08:33)
[2020-02-16] MEDS: Insulin DETEMIR 100 UNIT/ML X5UNITS SQ SCH (08:39)
[2020-02-16] MEDS ORDERED: Metoprolol XL (24 HR) Succ 50 MG TAB.ER.24H PO SCH (09:00)
[2020-02-16] MEDS ORDERED: Budesonide/Formoterol 80/4.5 1 PUFF INH IH SCH (10:00)
[2020-02-16 14:10] VITALS: BP 109/61
[2020-02-16 17:58] LABS: HSV Source CSF
[2020-02-17 10:42] LABS: Enterovirus RNA Qual (PCR) NOT DETECTED
== END 2020-02-16 17:10 | disposition home health service (06) | DRG 720 ==
LOC: EMEROOARM 08:55 → ICNU 11:37 → SUATTDRO 11:37 → ICNU 12:20 → 3ANU 02-14 15:01
PROVIDERS: ADMIT Pediatrics; ATTEND Internal Medicine

== ENCOUNTER 2022-05-30 09:26 | Observation (INO) ==
[2022-05-30] MEDS ORDERED: 0.9 % Sodium Chloride 1,000 ML IVC ONE ×2 (11:01→12:09)
[2022-05-30 11:21] LABS: Bacteria,Urine Few per hpf (None-Few); Bilirubin,Urine Negative (Negative); Blood,Urine Trace (Negative); Clarity,Urine Clear (Clear); Color,Urine Colorless (Yellow); Glucose,Urine (UA) >=1000 mg/dL (Normal); Ketones,Urine >150 mg/dL (Negative); Leukocyte Esterase,Urine Negative (Negative); Mucus,Urine Few per lpf (None-Few); Nitrite,Urine Negative (Negative); PH,Urine 6.5 pH Units (5.0-8.0); Protein,Urine 100 mg/dL (Neg-Trace); RBC,Urine 0-3 per hpf (0-3); Specific Gravity,Urine > 1.030 (1.010-1.025); Squamous Epithelial Cell,Urine Few per hpf (None-Few); Urobilinogen,Urine Normal (Normal); WBC,Urine 0-3 per hpf (0-3)
[2022-05-30 11:33] LABS: VBG HCO3 17 mEq/L (21-27); VBG PCO2 41 mmHg (41-51); VBG PH 7.23 pH Units (7.32-7.42); VBG PO2 45 mmHg (25-50)
[2022-05-30 11:34] LABS: Basophils # 0.1 K/mcL (0.0-0.2); Basophils % 0.7 %; Eosinophils # 0.1 K/mcL (0.0-0.6); Eosinophils % 1.2 %; Hematocrit 41.5 % (35.3-44.9); Immature Granulocytes % 0.4 % (0-4); Lymphocytes # 1.8 K/mcL (0.6-4.6); Lymphocytes % 22.4 %; Mean Corpuscular HGB Conc 33.7 g/dL (31.6-35.5); Mean Corpuscular Hemoglobin 29.5 pg (28.0-33.3); Mean Corpuscular Volume 87.4 fL (83.0-100.0); Mean Platelet Volume 12.2 fL (9.4-12.4); Monocytes # 0.7 K/mcL (0.0-1.3); Monocytes % 9.1 %; Neutrophils # 5.3 K/mcL (1.6-8.9); Platelet Count 154 K/mcL (140-400); Red Blood Count 4.75 M/mcL (3.82-4.97); Red Cell Distribution Width 13.5 % (11.5-14.5); Segmented Neutrophils % 66.2 %
[2022-05-30 11:42] LABS: Influenza A PCR Negative (Negative); Influenza B PCR Negative (Negative); Resp. Syncytial Virus PCR Negative (Negative)
[2022-05-30 11:50] LABS: SARS-CoV-2 by PCR (In House) Negative (Negative)
[2022-05-30 12:01] LABS: Albumin 4.2 g/dL (3.5-5.7); Albumin/Globulin Ratio 1.6 (1.1-2.2); Bilirubin,Total 0.4 mg/dL (0.3-1.0); Calcium 8.6 mg/dL (8.6-10.3); Globulin 2.7 g/dL (2.4-3.5); Potassium 3.4 mEq/L (3.5-5.1); Total Protein 6.9 g/dL (6.4-8.9)
[2022-05-30] MEDS ORDERED: Insulin Human Regular 10 UNIT in 0.9 % Sodium Chloride 10 ML IV ONE ×2 (12:10→16:56)
[2022-05-30] MEDS ORDERED: Potassium Effervescent 25 MEQ TABLET.EFF PO ONE (12:20)
[2022-05-30] MEDS ORDERED: Ondansetron 4 MG/2 ML VIAL IVP PRN (15:24)
[2022-05-30] MEDS ORDERED: Naloxone 0.4 MG/ML INJ IVP PRN (15:24)
[2022-05-30] MEDS ORDERED: Acetaminophen 325 MG TABLET PO PRN (15:24)
[2022-05-30 16:40] LABS: BUN/Creatinine Ratio 13 (6-26); Blood Urea Nitrogen 10 mg/dL (6-20); Calcium 7.7 mg/dL (8.6-10.3); Carbon Dioxide 14 mEq/L (23-29); Chloride 104 mEq/L (98-107); Glucose 323 mg/dL (70-105); Osmolality,Calculated 290 (280-300); Potassium 3.4 mEq/L (3.5-5.1); Sodium 134 mEq/L (136-145)
[2022-05-30 17:13] LABS: Magnesium 1.9 mg/dL (1.6-2.6)
[2022-05-30] MEDS ORDERED: Potassium Phosphate 44 MEQ in 0.9 % Sodium Chloride 250 ML IVPB ONE (17:19)
[2022-05-30] MEDS ORDERED: D5% in Water 1,000 ML IVC PRN (17:26)
[2022-05-30] MEDS ORDERED: Dextrose Gel 15 GM/37.5 ML TUBE PO PRN ×2 (17:26)
[2022-05-30] MEDS ORDERED: *HR* Dextrose 50 % in Water (Syg) 50 ML SYRINGE IVP PRN (17:26)
[2022-05-30] MEDS ORDERED: hydrOXYzine pamoate 25 MG CAPSULE PO PRN (18:02)
[2022-05-30] MEDS: Insulin LISPRO 300 UNITS/3 ML VIAL SUBQ SCH (18:57)
[2022-05-30 20:12] LABS: BUN/Creatinine Ratio 11 (6-26); Blood Urea Nitrogen 9 mg/dL (6-20); Calcium 7.6 mg/dL (8.6-10.3); Carbon Dioxide 14 mEq/L (23-29); Chloride 104 mEq/L (98-107); Glucose 285 mg/dL (70-105); Osmolality,Calculated 283 (280-300); Potassium 3.4 mEq/L (3.5-5.1); Sodium 132 mEq/L (136-145)
[2022-05-30 21:41] LABS: Phosphorous < 1.0 mg/dL (2.7-4.5)
[2022-05-30] MEDS: Insulin DETEMIR 100 UNIT/ML X5UNITS SUBQ SCH (22:31)
[2022-05-31 02:13] LABS: Basophils % 0.6 %; Eosinophils # 0.1 K/mcL (0.0-0.6); Eosinophils % 1.4 %; Hematocrit 36.7 % (35.3-44.9); Immature Granulocytes % 0.3 % (0-4); Lymphocytes # 1.8 K/mcL (0.6-4.6); Lymphocytes % 25.4 %; Mean Corpuscular HGB Conc 33.5 g/dL (31.6-35.5); Mean Corpuscular Hemoglobin 29.1 pg (28.0-33.3); Mean Platelet Volume 11.9 fL (9.4-12.4); Monocytes # 0.7 K/mcL (0.0-1.3); Monocytes % 9.9 %; Neutrophils # 4.4 K/mcL (1.6-8.9); Platelet Count 140 K/mcL (140-400); Red Blood Count 4.22 M/mcL (3.82-4.97); Red Cell Distribution Width 13.8 % (11.5-14.5); Segmented Neutrophils % 62.4 %; White Blood Count 7.1 K/mcL (4.3-11.1)
[2022-05-31 02:16] LABS: Hemoglobin 12.3 g/dL (11.5-15.4)
[2022-05-31 02:27] LABS: BUN/Creatinine Ratio 10 (6-26); Blood Urea Nitrogen 8 mg/dL (6-20); Calcium 7.4 mg/dL (8.6-10.3); Carbon Dioxide 14 mEq/L (23-29); Chloride 103 mEq/L (98-107); Glucose 348 mg/dL (70-105); Magnesium 2.3 mg/dL (1.6-2.6); Osmolality,Calculated 286 (280-300); Phosphorous 2.2 mg/dL (2.7-4.5); Potassium 3.2 mEq/L (3.5-5.1); Sodium 132 mEq/L (136-145)
[2022-05-31] MEDS ORDERED: Potassium Phosphate 44 MEQ in 0.9 % Sodium Chloride 250 ML IVPB ONE ×3 (04:08→07:42)
[2022-05-31] MEDS: *HR* Enoxaparin 40 MG/0.4 ML SYRINGE SQ SCH (05:34)
[2022-05-31] MEDS: Loratadine 10 MG TABLET PO SCH (08:11)
[2022-05-31] MEDS: Furosemide 40 MG TABLET PO SCH (08:11)
[2022-05-31] MEDS: Aspirin 81 MG TAB.CHEW PO SCH (08:11)
[2022-05-31] MEDS: Topiramate 25 MG TABLET PO SCH (08:11)
[2022-05-31] MEDS: Metoprolol XL (24 HR) Succ 50 MG TAB.ER.24H PO SCH (08:11)
[2022-05-31] MEDS: Insulin LISPRO 300 UNITS/3 ML VIAL SUBQ SCH ×3 (08:13→17:09)
[2022-05-31] MEDS: Insulin DETEMIR 100 UNIT/ML X5UNITS SUBQ SCH (08:14)
[2022-05-31 10:32] LABS: Estimated Average Glucose 295 mg/dl; Hemoglobin A1C 11.9 %
[2022-05-31 13:59] LABS: Calcium 7.7 mg/dL (8.6-10.3); Potassium 3.5 mEq/L (3.5-5.1)
[2022-05-31] MEDS ORDERED: Insulin DETEMIR 100 UNIT/ML X5UNITS SUBQ SCH (21:00)
[2022-06-01 01:33] LABS: Basophils # 0.1 K/mcL (0.0-0.2); Basophils % 0.8 %; Eosinophils # 0.1 K/mcL (0.0-0.6); Eosinophils % 1.6 %; Hematocrit 34.8 % (35.3-44.9); Immature Granulocytes % 0.5 % (0-4); Lymphocytes # 2.1 K/mcL (0.6-4.6); Lymphocytes % 27.6 %; Mean Corpuscular HGB Conc 34.5 g/dL (31.6-35.5); Mean Corpuscular Hemoglobin 29.8 pg (28.0-33.3); Mean Corpuscular Volume 86.4 fL (83.0-100.0); Mean Platelet Volume 11.9 fL (9.4-12.4); Monocytes # 0.9 K/mcL (0.0-1.3); Monocytes % 11.6 %; Neutrophils # 4.4 K/mcL (1.6-8.9); Platelet Count 135 K/mcL (140-400); Red Blood Count 4.03 M/mcL (3.82-4.97); Segmented Neutrophils % 57.9 %; White Blood Count 7.6 K/mcL (4.3-11.1)
[2022-06-01 01:54] LABS: BUN/Creatinine Ratio 12 (6-26); Blood Urea Nitrogen 9 mg/dL (6-20); Carbon Dioxide 15 mEq/L (23-29); Chloride 108 mEq/L (98-107); Glucose 272 mg/dL (70-105); Magnesium 2.1 mg/dL (1.6-2.6); Osmolality,Calculated 294 (280-300); Potassium 3.2 mEq/L (3.5-5.1); Sodium 138 mEq/L (136-145)
[2022-06-01] MEDS ORDERED: Potassium Phosphate 44 MEQ in 0.9 % Sodium Chloride 250 ML IVPB ONE (07:16)
[2022-06-01] MEDS: Topiramate 25 MG TABLET PO SCH (07:49)
[2022-06-01] MEDS: Loratadine 10 MG TABLET PO SCH (07:49)
[2022-06-01] MEDS: Furosemide 40 MG TABLET PO SCH (07:49)
[2022-06-01] MEDS: *HR* Enoxaparin 40 MG/0.4 ML SYRINGE SQ SCH (07:49)
[2022-06-01] MEDS: Aspirin 81 MG TAB.CHEW PO SCH (07:50)
[2022-06-01] MEDS: Metoprolol XL (24 HR) Succ 50 MG TAB.ER.24H PO SCH (07:50)
[2022-06-01 07:57] VITALS: BP 124/83; PULSE 84; TEMP 98.3; O2SAT 98
[2022-06-01] MEDS: Insulin LISPRO 300 UNITS/3 ML VIAL SUBQ SCH (07:57)
[2022-06-01] MEDS ORDERED: Ergocalciferol (VIT D2) 50,000 UNIT (1.25MG) CAP PO SCH (09:00)
[2022-06-01] MEDS ORDERED: Insulin DETEMIR 100 UNIT/ML X5UNITS SUBQ SCH (09:00)
== END 2022-06-01 11:09 | disposition home or self-care (01) ==
LOC: 2NNU 09:26 → EMEROOARM 09:26 → SUATTDRO 16:38 → 2NNU 17:10 → 2ANU 05-31 15:32
PROVIDERS: ADMIT Pharmacist; ATTEND General Practice